=== PATIENT | male | born 1980 | race Caucasian/White ===

== ENCOUNTER → 2021-10-25 14:05 | Outpatient (RCR) | payer OTHER, SELFPAY ==
--- NOTE | 2020-04-18 18:56 | MHC.PT.EP ---
[facility] [place] Office [place] Office [place] Office [address] Emy Calderon [address] [phone] F: [phone] F: [phone] F: [phone] F: [phone] Physical Therapy Plan of Care Date of Evaluation: 04/18/20 Date of Surgery: Diagnosis: Cervical pain with evidence of disc disease. 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 Pt is deemed an appropriate candidate to receive skilled PT services to address his physical impairments to improve his functional ability. Frequency and Duration: The patient will be seen 2x/wk x 5 wks. Short Term Goals: In 3 weeks: abolish UE radicular Sx. In 1 week: initiate HEP with evidence of compliance. [place] Rug Setter Goals: In 5 weeks: I with HEP. In 5 weeks: Pt will report slightly disturbed sleep d/t cervical pain (initial: 2-3 hours disturbed per NDI). In 5 weeks: improve deep neck flexor endurance to > 30 seconds; initial 18 seconds. Treatment Plan: Modalities to reduce pain, spasms and effusion. Manual therapy to restore motion and function. Therapeutic exercise to improve strength and flexibility. Neuromuscular re-education for posture and balance. Therapeutic activities to return to functional activities of daily living. Please sign and return to therapist. Thank you for your referral.
--- NOTE | 2020-06-01 10:26 | MHC.PT.DC ---
[facility] [place] Office [place] Office [place] Office [address] Emy Calderon [address] [phone] F: [phone] F: [phone] F: [phone] F: [phone] Physical Therapy Discharge Report Diagnosis: Cervical pain with evidence of disc disease. Date of Surgery: Date of Evaluation: 04/18/20 Date of Discharge: Treatments to Date: 9 Cancellations to Date: 0 No Shows to Date: 0 Discharge Status: Achieved Goals Improved Function Discharge Summary: Artemio has been an ideal candidate for PT who has been an active participant in his therapy in and out of the clinic. He has met all of his therapeutic goals and is I with his home program. He has been pain free for > 3 weeks of his cervical and scapular regions though persists with some L index finer numbness. Pt is in agreement with DC at this time. Electronically signed by: bharti becker pt Please sign and return to therapist. Thank you for your referral.
== END | disposition home or self-care (01) ==
LOC: HO.PTCHIC 04-18 16:50
PROVIDERS: PCP Nurse Practitioner Family; Visit Provider Nurse Practitioner Family
DX: M50.90 Cervical disc disorder, unspecified, unspecified cervical region (principal)
CPT/HCPCS: 97014; 97110; 97140; 97161

== ENCOUNTER 2022-02-15 17:14 | Emergency (ER) | payer OTHER, SELFPAY ==
--- NOTE | ~2022-02-15 | XR_ITS ---
EXAMINATION: XR KNEE, LEFT CLINICAL INFORMATION: Closed injury COMPARISON: 12/23/2013 TECHNIQUE: Four views of the left knee. FINDINGS: Alignment across the knee is anatomic. Joint spaces are relatively well-maintained. Partially visualized intramedullary jaspreet in the tibia. Small to moderate joint effusion noted. XR/XR knee LT 3V IMPRESSION: Small to moderate joint effusion. No fracture identified.
[2022-02-15 19:41] VITALS: BP 130/69; PULSE 63; RESP 14; TEMP 36.6; O2SAT 97; BMI 24.1
--- NOTE | 2022-02-15 23:36 | ED_ITS ---
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 was walking and twisted his left knee since then increased swelling pain specially when ambulating patient had previous left tibia surgery in the past denies any significant pain in the knee before the incident Related Data Previous Rx's Medication Instructions Recorded tramadol 50 mg tablet 50 mg PO Q6H PRN pain #20 tabs 02/16/22 Allergies Allergy/AdvReac Type Severity Reaction Status Date / Time Sulfa (Sulfonamide Allergy Unknown rash Verified 12/15/19 00:00 Antibiotics) No Known Allergies Allergy Unverified 03/09/20 14:49 Review of Systems Review of Systems: Yes all other systems are reviewed and are negative [facility] Social History Social History Advance Directives: No Advance Directives Information Provided: No Physical Exam 2 Vital Signs: Vital Signs: Last Vital Signs Temp 98.5 F 02/15/22 23:39 Pulse 70 02/15/22 23:39 Resp 16 02/15/22 23:39 BP 119/73 02/15/22 23:39 Pulse Ox 98 02/15/22 23:39 O2 Del Method 02/15/22 23:39 BMI result Body Mass Index 24.1 Const: General: comfortable and no acute distress Extrem: Knee images: 1. Lateral joint line tenderness with effusion Susy sign positive , anterior drawer sign negative good range of knee movement++ ef fusion present MDM - Extremity Injury (Lower) MDM Narrative Medical decision making narrative: Patient x-rays showed small to moderate effusion no fracture discharge patient home possible patient has left knee left meniscal strain Discharge Plan Discharge Clinical Impression: Acute internal derangement of knee Patient Disposition: Home, Self-Care Instructions: Knee Sprain (ED), Meniscus Tear (ED) Additional Instructions: Rest to the left knee, wear the knee immobilizer use crutches for ambulation Ibuprofen for pain Follow-up with orthopedics for further evaluation and treatment Prescriptions: New tramadol 50 mg tablet 50 mg PO Q6H PRN (Reason: pain) Qty: 20 0RF Referrals: Mendel Hooker MD [Physician] - 2 weeks
[2022-02-15 23:39] VITALS: BP 119/73; PULSE 70; RESP 16; TEMP 36.9; O2SAT 98
--- NOTE | 2022-02-16 00:39 | PC.NURSE ---
L knee immobilizer applied. Pt verbalized an understanding for its proper uses and indications. Pt was also given crutches and was able to demonstrate a safe use of them. He verbalized an understanding of all DC orders and ambulated out of the ED on crutches independently and with steady gait.
== END 2022-02-16 00:38 | disposition home or self-care (01) ==
PROVIDERS: Emergency Provider Internal Medicine; PCP Nurse Practitioner Family
DX: M23.92 Unspecified internal derangement of left knee (principal); M25.462 Effusion, left knee; M25.562 Pain in left knee
CPT/HCPCS: 73562; 99283

== ENCOUNTER 2022-03-04 08:34 | Outpatient (REF) | payer OTHER, SELFPAY ==
--- NOTE | ~2022-03-04 | XR_ITS ---
EXAMINATION: XR KNEE AP STANDING XR KNEE LEFT CLINICAL INFORMATION: Knee pain. COMPARISON: 0 02/15 2022 TECHNIQUE: AP standing view both knees [place] view of left knee FINDINGS: AP standing view both knees: The tibiofemoral joint spaces are maintained at each knee. The visualized proximal segment of the left tibial nail is in stable position. No osteolysis around the visualized hardware. Incidentally noted are punctate metallic densities projecting over soft tissues of the lateral distal right thigh. [place] view of left knee: The patella is well-positioned within the trochlear groove. The patellofemoral joint space is normal. There are no findings of any significant degenerative or inflammatory arthropathy at the knee. XR/XR knee LT 1V IMPRESSION: * No specific cause of knee pain is identified. * There is no fracture or osteolysis around the visualized proximal segment of the left tibial intramedullary nail.
--- NOTE | ~2022-03-04 | XR_ITS ---
EXAMINATION: XR KNEE AP STANDING XR KNEE LEFT CLINICAL INFORMATION: Knee pain. COMPARISON: 0 02/15 2022 TECHNIQUE: AP standing view both knees [place] view of left knee FINDINGS: AP standing view both knees: The tibiofemoral joint spaces are maintained at each knee. The visualized proximal segment of the left tibial nail is in stable position. No osteolysis around the visualized hardware. Incidentally noted are punctate metallic densities projecting over soft tissues of the lateral distal right thigh. [place] view of left knee: The patella is well-positioned within the trochlear groove. The patellofemoral joint space is normal. There are no findings of any significant degenerative or inflammatory arthropathy at the knee. XR/XR knee standing BI IMPRESSION: * No specific cause of knee pain is identified. * There is no fracture or osteolysis around the visualized proximal segment of the left tibial intramedullary nail.
== END 2022-03-04 08:35 | disposition home or self-care (01) ==
LOC: HO.HOSX 08:34
PROVIDERS: Visit Provider Physician Assistant
DX: M25.562 Pain in left knee (principal); M25.561 Pain in right knee
CPT/HCPCS: 73560; 73565

== ENCOUNTER 2022-03-15 15:53 | Outpatient (REF) | payer OTHER, SELFPAY ==
--- NOTE | ~2022-03-15 | MR_ITS ---
EXAMINATION: MR KNEE WITHOUT CONTRAST, LEFT CLINICAL INFORMATION: Left knee pain. Internal derangement. COMPARISON: Left knee radiographs dated 03/04/2022. TECHNIQUE: MRI of the knee without contrast was performed using routine sequences on a high-field scanner. FINDINGS: MENISCI: Medial Meniscus: Intact. Lateral Meniscus: Possible minimal inner margin fraying of the meniscal body. LIGAMENTS: Cruciate: Complete tear through the proximal aspect of the anterior cruciate ligament. The distal ligament is diffusely thickened and irregular with anterior displacement of distal ligament fibers. Adjacent soft tissue edema. Intact posterior cruciate ligament. Collateral: Mild edema adjacent to the medial collateral ligament consistent with a grade 1 sprain. Intact fibular collateral ligament. EXTENSOR MECHANISM: Intact. ARTICULAR CARTILAGE/BONE: Patellofemoral Compartment: Patellar median ridge partial-thickness articular cartilage loss with underlying signal heterogeneity. Tiny marginal osteophytes. Medial Compartment: Minimally depressed impaction fracture of the posterior aspect of the medial tibial plateau with underlying marrow edema. Lateral Compartment: Minimally depressed impaction fractures at the sulcus terminalis and posterior lateral tibial plateau with underlying marrow edema. Partially visualized artifact within the proximal tibia consistent with prior surgery. No evidence of complication. JOINT FLUID AND BURSAE: Small joint effusion. Posterior fluid within the fascial planes consistent with leak or rupture. MR/MR knee LT wo con IMPRESSION: 1. Complete tear through the proximal aspect of the anterior cruciate ligament with adjacent edema and anterior displacement of the distal ligament fibers. 2. Minimally depressed impaction fractures at the sulcus terminalis as well as at the medial and lateral posterior tibial plateau. Small joint effusion. 3. Grade 1 sprain of the medial collateral ligament. 4. Possible minimal inner margin fraying of the lateral meniscal body.
--- NOTE | ~2022-03-15 | XR_ITS ---
EXAMINATION: X-RAY ORBITS CLINICAL INFORMATION: Screening for MRI. COMPARISON: No similar priors. TECHNIQUE: 3 views. XR/XR pre mri screening FINDINGS/IMPRESSION: No unexpected radiopaque foreign bodies.
== END 2022-03-15 15:54 | disposition home or self-care (01) ==
LOC: HO.MRI 15:53
PROVIDERS: Visit Provider Physician Assistant
DX: M23.92 Unspecified internal derangement of left knee (principal)
CPT/HCPCS: 73721

== ENCOUNTER → 2022-03-22 13:08 | Outpatient (REF) | payer OTHER, SELFPAY ==
--- NOTE | 2022-03-22 13:11 | HM_ITS ---
Conclusion: 1. Patient was monitored for total period of 3 days 2. Baseline was normal sinus rhythm with average heart of 62 beats per minute 3. Frequent sinus bradycardia noted with heart rate below 60 beats per minute noted 50% of the time 4. Seven pauses greater than 2.5 seconds noted with longest pause of 2.75 seconds at 01:27 5. Rare ectopy noted 6. No patient reported events MTDD
--- NOTE | 2022-03-22 13:16 | CA_ITS ---
Transthoracic Echocardiogram Patient (Last, First, Middle): Artemio Mir E Gender: Male Date of : 1980 Age: 41 Procedure Date: 03/22/2022 Procedure Type: Transthoracic Echocardiogram Location: OP Height: 182.88 cm Weight: 79.38 kg BSA: 2.01 m2 Heart Rate: bpm BP: 120 / 72 mmHg Circuit Walker: TO Referring MD: Adalberto Dunn [facility] Symptoms: R07.9 - Chest pain, unspecified Study Quality: Fair Conclusions: - Normal left ventricular size, thickness, systolic function, and wall motion. The visually estimated ejection fraction is between 55-60%. Diastolic function is normal for age. - There is normal right ventricular systolic function. RV appears borderline enlarged. Findings Left Ventricle Normal left ventricular size, thickness, systolic function, and wall motion. The visually estimated ejection fraction is between 55-60%. Diastolic function is normal for age. Right Ventricle There is normal right ventricular systolic function. RV appears borderline enlarged. Atria Both atria are normal in size. Aortic Valve Normal aortic valve structure and function. There is no aortic valve stenosis. There is no aortic valve regurgitation. Mitral Valve Normal mitral valve structure and function. There is no mitral valve regurgitation. There is no mitral valve stenosis. Pulmonic Valve Normal pulmonic valve structure and function. There is trace pulmonic valve regurgitation. Tricuspid Valve Normal tricuspid valve structure and function. There is no tricuspid valve regurgitation. Normal right atrial pressure. There is no evidence of pulmonary hypertension. Great Vessels All visible segments of the aorta are normal in size. The visualized portions of the pulmonary artery and branches are normal. Venous The inferior vena cava is normal in size and collapses greater than 50% with inspiration. Pericardium/Pleural There is no evidence of pericardial effusion. Prior Study Comparison No prior study available for comparison. Measurements 2D Linear Measurements IVSd: 1.01 0.6-0.9/0.6-1.0 cm LVIDd: 4.97 3.9-5.3/4.2-5.9 cm LVIDd Index: 2.47 2.4-3.2/2.2-3.1 cm/m2 LVIDs: 2.98 2.0-3.6 cm LVPWd: 1.02 0.7-1.1 cm LA Diam: 3.60 2.7-3.8/3.0-4.0 cm LAIDs Index: 1.79 1.5-2.3 cm/m2 LV Mass: 229.05 67-162/88-224 g LV Mass Index: 113.95 43-95/49-115 g/m2 LVOT Diam: 2.20 3.0+(-)1.3 cm 2D Systolic Function EF 4C: 65.50 >55% EF 2C: 57.10 >55% EF BiP: 61.30 >55% Mitral Valve MV Pk E: 0.84 MV PK A: 0.33 MV Decel Time: 204.00 E/A: 2.60 E'Lateral: 15.80 E'Medial: 9.57 E/E' Med: 8.70 E/E' Lat: 5.30 PHT: 60.00 MVA PHT: 3.67 Decel [place]: 4.10 Aortic Valve AoV Pk Darryl: 1.54 AoV Mn Darryl: 1.12 AoV VTI: 0.36 AoV Pk Grad: 9.00 Aov Mn Grad: 5.00 MICHAEL Cont.VTI: 2.88 LVOT LVOT Pk Darryl: 1.20 LVOT Mn Darryl: 0.75 LVOT VTI: 0.27 LVOT Pk Grad: 6.00 LVOT Mn Grad: 3.00 LVOT Diam: 2.20 LVOT Area: 3.80 Diastolic Function MV Pk E: 0.84 MV Pk A: 0.33 E/A: 2.60 E'Medial: 9.57 E/E' Med: 8.70 E' Laterial: 15.80 E/E' Lat: 5.30 Right Ventricle TAPSE (mm): 23.40 TVS' Darryl: 11.30 Tricuspid Valve TR Pk Darryl: 2.63 TR Pk Grad: 28.00 RA Press: 3.00 RVSP: 31.00 Great Vessels Aorta Sinus of Valsalva: 3.18 2.0-3.5 cm Ao Asc: 2.80 2.1-3.4 cm Updated in Other Vendor System with Status of Final Nickolas Tellez MD electronically signed on 03/22/2022 7:56:23 PM with status of Final
== END ==
LOC: HO.CARD 13:08
PROVIDERS: PCP Nurse Practitioner Family; Visit Provider Nurse Practitioner Family
DX: R07.9 Chest pain, unspecified (principal)
CPT/HCPCS: 93242; 93306

== ENCOUNTER → 2022-06-11 10:26 | Outpatient (BNVA) | payer OTHER, SELFPAY | PROVIDERS: PCP Nurse Practitioner Family; Visit Provider Physician Assistant | DX: S83.519A Sprain of anterior cruciate ligament of unspecified knee, initial encounter (principal) ==

== ENCOUNTER 2022-06-12 09:56 | Day surgery (SDC) | payer OTHER, SELFPAY ==
[2022-06-07 09:27] VITALS: BMI 24.8
--- NOTE | 2022-06-11 09:09 | HO.ANESPROP2 ---
Documented by User: Nereida Camarillo NP 06/11/22 09:14 HPI - Anesthesia Eval Consult details Narrative: 41yo M for Left ACL Reconstruction with Allograft Cardiac cleared PMF Active Problems Active Problems: All Active Problems (Updated 05/02/22 @ 15:50 by Nickolas Tellez MD) Chest pain (Acute) Nail discoloration (Acute) Internal derangement of left knee (Acute) ACL (anterior cruciate ligament) rupture (Acute) Preop cardiovascular exam (Acute) Past Medical History Medical History Celiac disease GERD (gastroesophageal reflux disease) Family History Family History Father Stroke Mother H/O heart artery stent Surgical History Surgical History History of back surgery History of esophagogastroduodenoscopy (EGD) History of surgery on lower extremity Social History Social History Alcohol intake: current Alcohol intake frequency: former alcohol drinker Patient Tobacco Use Status: Current everyday Tobacco user Tobacco use type: Cigarette and Smokeless Tobacco Cigarettes Per Day: 6 Years Smoked: 8 +/- e-Cigarette/Vaping Use: Currently Using Substance Use Type: Marijuana Current occupational status: employed Current occupation: [employer], [employer] Allergies Allergy/AdvReac Type Severity Reaction Status Date / Time No Known Allergies Allergy Verified 06/11/22 10:30 Home Medications Medication Instructions Recorded Confirmed Last Taken Type fluoxetine 20 mg capsule 20 mg PO DAILY 02/19/22 06/07/22 Unknown History lamotrigine 200 mg tablet 200 mg PO BID 02/19/22 06/07/22 Unknown History trazodone 50 mg tablet 50 mg PO BEDTIME 02/21/22 06/07/22 Unknown History Exam Exam Date and Time: June 11, 2022 0909 Height,Weight and Vital Signs: Height 6 ft Weight 83.007 kg Narrative Narrative: ECHO 02/2022 Conclusions: - Normal left ventricular size, thickness, systolic function, and wall motion. The visually estimated ejection fraction is between 55-60%.? Diastolic function is normal for age. ? - There is normal right ventricular systolic function.? RV ? ? ? appears borderline enlarged. ? Holter 02/2022 Conclusion: 1. Patient was monitored for total period of 3 days 2. Baseline was normal sinus rhythm with average heart of 62 beats per minute 3. Frequent sinus bradycardia noted with heart rate below 60 beats per minute noted 50% of the time 4. Seven pauses greater than 2.5 seconds noted with longest pause of 2.75 seconds at 01:27 5. Rare ectopy noted 6. No patient reported events Assessment and Plan Assessment Anesthesia Assessment: Chart Reviewed Documented by User: Jefry Weeks MD 06/12/22 17:34 [facility] Past Medical History Medical History Celiac disease GERD (gastroesophageal reflux disease) Functional capacity: independent ambulation Family History Family History Father Stroke Mother H/O heart artery stent Family history of problems with anesthesia: No Surgical History Surgical History History of back surgery History of esophagogastroduodenoscopy (EGD) History of surgery on lower extremity History of Problems with Anesthesia: No Social History Social History Alcohol intake: current Alcohol intake frequency: former alcohol drinker Patient Tobacco Use Status: Current everyday Tobacco user Tobacco use type: Cigarette and Smokeless Tobacco Cigarettes Per Day: 6 Years Smoked: 8 +/- e-Cigarette/Vaping Use: Currently Using Substance Use Type: Marijuana Current occupational status: employed Current occupation: [employer], [employer] Allergies Allergy/AdvReac Type Severity Reaction Status Date / Time No Known Allergies Allergy Verified 06/11/22 10:30 Home Medications Medication Instructions Recorded Confirmed Last Taken Type fluoxetine 20 mg capsule 20 mg PO DAILY 02/19/22 06/07/22 Unknown History lamotrigine 200 mg tablet 200 mg PO BID 02/19/22 06/07/22 Unknown History trazodone 50 mg tablet 50 mg PO BEDTIME 02/21/22 06/07/22 Unknown History Exam Airway Mallampati Class: IV TM Dist: >3cm Neck ROM: Full Loose/Missing/Broken Teeth: Yes (multiple chipped teeth ) Heart: S1,S2 Lungs: b/l breath sounds Assessment and Plan Assessment Anesthesia Assessment: Anesthesia Plan Discussed Final Anesthetic Review Family History of Problems with Anesthesia: No History of Problems with Anesthesia: No NPO: Yes ASA Class: II Final Preanesthetic Review: Meds/Allgs Chart Reviewed, Consent Obtained/Reviewed and Anes Risks/Benef Reviewed Patient Risk: Intermediate Procedure Risk: Intermediate Anesthetic Plan Anesthetic Plan: GA and Regional Block Disposition: Standard PACU
[2022-06-12] VITALS (9 sets, daily range): BP systolic 102–143; BP diastolic 49–91; PULSE 55–84; RESP 10–18; TEMP 36.7; O2SAT 95–100; BMI 23.0
[2022-06-12] MEDS: Lactated Ringers 1,000 ML 100 ML IVCONT (10:48)
--- NOTE | 2022-06-12 11:27 | MHC.SHP ---
Pre-Procedural Eval Section A Date of Service: 06/12/22 The patient is an INPATIENT: No Changes since office visit: No Cold of Flu in the past 2 weeks, No New Medical Problems, No Changes in Medication and No Patient answered all questions The History & Physical has been completed within 30 days and I have reviewed it.: Yes Section B Chief Complaint: Sprain of anterior cruciate ligament of unspecifie Allergies: Allergies Allergy/AdvReac Type Severity Reaction Status Date / Time No Known Allergies Allergy Verified 06/11/22 10:30 Plan I have reviewed the history and physical and performed a pertinent physical examination on my patient. No changes have occurred unless specified. Time Spent With Patient Time: Total time managing care of this patient today ____ minutes.
--- NOTE | 2022-06-12 13:17 | PM.OP ---
Brief Operative Note Date of Service: 06/12/22 Pre-op diagnosis: Left ACL tear Post-op diagnosis: same Procedure: Left ACL reconstruction with allograft Implants: Alves and Nephew ACL endobutton with Anterior Tibiaslis allograft and 11x25 mm Alves and Nephew interference screw Surgeon: Mendel Hooker MD Anesthesia: GETA Was an Catalyst Operator Chief used for this Procedure?: Yes Catalyst Operator Chief: Sarika Patiño Estimated blood loss (mL): 20 Tourniquet time (min): 55 IV fluids (mL): 1,000 Pathology: none sent Condition: stable Disposition: PACU
[2022-06-12] MEDS: Acetaminophen 325 MG TABLET 650 MG PO (13:56)
[2022-06-12] MEDS: oxyCODONE HCl Immed Release 5 MG TABLET PO (13:56)
[2022-06-12] MEDS: fentaNYL citrate/PF 100 MCG/2 ML VIAL 25 MCG IVPUSH ×2 (13:57→14:04)
--- NOTE | 2022-06-12 15:10 | W.PM.OPN ---
Operative Note Operative Note Date of Service: 06/12/22 Narrative: Date of Service: 06/12/22 Pre-op diagnosis: Left ACL tear Post-op diagnosis: same Procedure: Left ACL reconstruction with allograft Implants: Alves and Nephew ACL endobutton with Anterior Tibiaslis allograft and 11x25 mm Alves and Nephew interference screw Surgeon: Mendel Hooker MD Anesthesia: GETA Was an Recreation Leader used for this Procedure?: Yes Recreation Leader: Sarika Patiño Estimated blood loss (mL): 20 Tourniquet time (min): 55 IV fluids (mL): 1,000 Pathology: none sent Condition: stable Disposition: PACU Procedure in detail: Patient was brought to the operating room placed supine on the arthroscopic table and prepped and draped in standard sterile fashion. A time-out was called to identify proper site proper procedure proper surgeon and IV antibiotics per weight were administered. Under anesthesia she had a + pivot shift. I began by exsanguinating the limb and insufflating tourniquet to 300 mm Hg. Then made a standard anterolateral stab incision. The knee was insufflated with water and 30 degree arthroscope was placed. There was grade 0 fibrillations of the patella but overall suprapatellar pouch and the gutters were clean. I descended into the medial compartment where I made my far medial portal under direct visualization. There were no menical changes and G1 fibrillations over hte lateral spect of the MFC. I then examined the notch where there was a + empty wall sign and an intact PCL. I debrided the stump and acl footprint and performed a limited notchplasty. I then, through a far AM portal and a 7mm behind the back guide, drilled a k-wire through the LFC with the knee in hyper-flexion. I measured the tunnel as a 33 and then after sizing the allograft on the back table drilled a 25 mm tunnel with an 11 mm reamer. The final 8 mm was drilled with a 4.5 reamer. I then pulled a suture through the femoral tunnel and turned my attention to the tibia. I did examine the femoral tunnel and was satisfied with the posterior wall and its location low and medial at the anatomic footprint. I placed my tibial drill guide in 55 deg and, through a anteromedial inc just lateral to the tibial tubercle placed a k-wire into the notch exiting just medial to the anterior horn insertion of the lateral meniscus. I then over-reamed with an 11 reamer. I cleaned the tunnels up with a shaver. On the back table I whip-stitched the allograft to fit through an 11 aperture and attached the femoral button to the looped end. I placed the graft on 15lbs of tension for 10 minutes. I then passed the allograft through the tibial tunnel and femoral tunnel and flipped the button. I cycled the knee about 10-15 cycles and then placed a tibial interference screw with the knee in hyper-extension while holding the graft taught. Once I was satisfied that the interference screw was buried I examined the ACL. The repair was stable and the ACL was not impinging and there was a negative pivot shift. I then removed all instrumentation and closed the incisions with nylon. Patient was then placed in sterile dressings and a hinged knee brace. She was then extubated brought recovery room stable condition. There were no known complications.
== END 2022-06-12 15:25 | disposition home or self-care (01) ==
LOC: HO.SSS 09:57
PROVIDERS: PCP Nurse Practitioner Family; Visit Provider Orthopaedic Surgery
PROC: (CPT 27428; principal; 2022-06-12 11:50)
DX: S83.512A Sprain of anterior cruciate ligament of left knee, initial encounter (principal); X58.XXXA Exposure to other specified factors, initial encounter; Y93.61 Activity, american tackle football; Y92.9 Unspecified place or not applicable; Y99.8 Other external cause status; R07.9 Chest pain, unspecified; K90.0 Celiac disease; K21.9 Gastro-esophageal reflux disease without esophagitis; Z79.899 Other long term (current) drug therapy; Z98.890 Other specified postprocedural states; F17.210 Nicotine dependence, cigarettes, uncomplicated
CPT/HCPCS: 29888; A4649; C1713; C1769; J0690; J1170; J2250; J2405; J3010

== ENCOUNTER 2022-06-21 07:57 | Outpatient (REF) | payer OTHER, SELFPAY ==
--- NOTE | ~2022-06-21 | XR_ITS ---
EXAMINATION: XR KNEE, LEFT CLINICAL INFORMATION: Pain. COMPARISON: Radiographs dated 03/05/2022 and 02/15/2022. TECHNIQUE: AP and lateral views of the left knee. FINDINGS: Bony alignment and mineralization are normal. The lateral, medial and patellofemoral joint space compartments are well-maintained. There is a mild patella ti configuration. An intramedullary jaspreet is redemonstrated within the proximal left femur, partially included in the [id number]. There is stable very mild osteolysis adjacent to the proximal portion of this intramedullary jaspreet, unchanged from 02/15/2022. There appears to have been a prior ACL repair. No fracture or dislocation is seen. There is a small left knee joint effusion. No foreign body is noted. XR/XR knee LT 2V IMPRESSION: 1. No fracture or dislocation is seen. 2. There is a small left knee joint effusion. 3. There are postoperative changes, as detailed.
== END 2022-06-21 07:58 | disposition home or self-care (01) ==
LOC: HO.HOSX 07:57
PROVIDERS: Visit Provider Physician Assistant
DX: S83.512D Sprain of anterior cruciate ligament of left knee, subsequent encounter (principal)
CPT/HCPCS: 73560

== ENCOUNTER → 2022-07-19 11:30 | Outpatient (BNVA) | payer OTHER, SELFPAY | PROVIDERS: PCP Nurse Practitioner Family; Visit Provider Physician Assistant | DX: S83.512A Sprain of anterior cruciate ligament of left knee, initial encounter (principal) ==

== ENCOUNTER 2022-08-23 09:00 | Outpatient (RCR) | payer OTHER, SELFPAY ==
--- NOTE | 2022-06-14 10:11 | MHC.PT.EP ---
[facility] [place] Office [place] Office [place] Office [address] Emy Calderon [address] [phone] F: [phone] F: [phone] F: [phone] F: [phone] Physical Therapy Plan of Care Date of Evaluation: Date of Surgery: 06/12/22 Diagnosis: L ACL allograft Assessment: 41 y/o male s/p L ACL reconstruction with allograft 06/12/22. Of note, he has a L tibial ORIF and L5-S1 fusion. He is currently ambulating with B axillary crutches wearing brace locked in extension. He has poor quad strength with asymmetrical and weak firing of quad, swelling, L knee ROM 0-8-90, and significant lag with SLR (therapist assisted). 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 He will benefit from PT 2x/week for 16 weeks to address impairments, implement HEP, and optimize functional moblity. Frequency and Duration: The patient will be seen 2x/week for 16 weeks Short Term Goals: Pt will demonstrate good VMO recruitment without extension lag in 4 weeks. Pt will demonstrate knee flexion AROM to 105 deg in 4 weeks. Pt will demonstrate L knee extension AROM to 0 deg for symmetry with R knee in 4 weeks. Pt will demonstrate increased L patella mobility to 3/6 in 4 weeks. Pt will demonstrate ability to ambulate with normal gait mechanics without brace in 8 weeks. Edge Inker Goals: Pt will demonstrate full knee AROM Pt will demonstrate L SLS EO x 15 sec and L SLS EO on foam x 15 sec for improved knee proprioception in 8-10 weeks. Pt will demonstrate L hip and knee strength at least 4/5 in 8-10 weeks. Pt will demonstrate L SL squat within 4 cm of R LE for decreased risk of reinjury in 12 weeks. Pt will be able to initiate specific selected sport drills Treatment Plan: Modalities to reduce pain, spasms and effusion. Manual therapy to restore motion and function. Therapeutic exercise to improve strength and flexibility. Neuromuscular re-education for posture and balance. Therapeutic activities to return to functional activities of daily living. Electronically signed by: Zoraida Lindsay PT Please sign and return to therapist. Thank you for your referral.
--- NOTE | 2022-09-30 14:41 | MHC.PT.DC ---
[facility] [place] Office [place] Office [place] Office [address] Emy Calderon 140 [facility] [phone] F: [phone] F: [phone] F: [phone] F: [phone] Physical Therapy Discharge Report Diagnosis: L ACL allograft Date of Surgery: 06/12/22 Date of Evaluation: 06/14/22 Date of Discharge: 09/30/22 Treatments to Date: 9 Cancellations to Date: 0 No Shows to Date: 1 Discharge Status: Improved Function Independent with HEP Discharge Summary: He was making good progress with strength and functional mobility but did not f/u with further appointments. D/c chart at this time Electronically signed by: Zoraida Lindsay PT Please sign and return to therapist. Thank you for your referral.
== END 2022-09-30 14:42 | disposition home or self-care (01) ==
LOC: HO.PTCHIC 09:00
PROVIDERS: PCP Nurse Practitioner Family; Visit Provider Physician Assistant
DX: S83.512A Sprain of anterior cruciate ligament of left knee, initial encounter (principal); Z98.890 Other specified postprocedural states
CPT/HCPCS: 97110; 97112; 97140; 97161; 97530

== ENCOUNTER → 2022-08-30 13:40 | Outpatient (BNVA) | payer OTHER, SELFPAY | PROVIDERS: PCP Nurse Practitioner Family; Visit Provider Physician Assistant | DX: Z13.89 Encounter for screening for other disorder (principal) ==

== ENCOUNTER 2022-09-23 02:04 | Emergency (ER) | payer OTHER, SELFPAY ==
--- NOTE | 2022-09-23 02:05 | ECG_ITS ---
Test Reason : CHEST PAIN Blood Pressure : / mmHG Vent. Rate : 071 BPM Atrial Rate : 071 BPM P-R Int : 162 ms QRS Dur : 108 ms QT Int : 394 ms P-R-T Axes : 081 083 069 degrees QTc Int : 428 ms Normal sinus rhythm Normal ECG No previous ECGs available Referred By: Generic ED Physician Electronically Signed By:Nickolas Tellez
[2022-09-23 02:20] VITALS: BP 177/93; PULSE 80; RESP 18; TEMP 37; O2SAT 100; BMI 23.0
[2022-09-23 02:37] LABS: MANUAL DIFF FLAG NO
[2022-09-23 02:38] LABS: Basophils Absolute Auto 0.1 X10*3/uL (0.0-0.2); Basophils Percent Auto 0.9 % (0-2); Eosinophils Percent Auto 0.5 % (0-4); Hematocrit 40.9 % (42.0-52.0); Hemoglobin 14.3 g/dl (14.0-18.0); Imm Gran Abs Auto 0.01 X10*3/uL (0.00-0.03); Imm Gran Pct Auto 0.1 % (0.0-0.4); Lymphocytes Absolute Auto 1.7 X10*3/uL (1.2-4.9); Lymphocytes Percent Auto 19.6 % (20-40); Mean Corpuscular Hemoglobin 31.4 pg (27.0-33.0); Mean Corpuscular Volume 89.9 fL (80.0-98.0); Mean Platelet Volume 9.1 fL (9.4-12.4); Monocytes Absolute Auto 0.8 X10*3/uL (0.1-1.2); Monocytes Percent Auto 8.5 % (2-11); Neutrophils Absolute Auto 6.2 x10*3/uL (2.0-8.3); Neutrophils Percent Auto 70.4 % (45-73); Platelet Count 274 X10*3/uL (160-400); Red Blood Count 4.55 X10*6/uL (4.60-5.80); Red Cell Distribution Width 11.9 % (11.0-16.0); White Blood Count 8.9 X10*3/uL (4.8-10.8)
[2022-09-23 03:04] LABS: Anion Gap 17 (12-20); Blood Urea Nitrogen 13 mg/dL (9-16); Calcium 9.4 mg/dL (8.4-10.2); Carbon Dioxide 25 mmol/L (22-29); Chloride 98 mmol/L (96-108); Estimated Glomerular Filt Rate > 60; Glucose Random 134 mg/dL (60-115); Potassium 3.7 mmol/L (3.3-5.1); Sodium 136 mmol/L (135-145)
[2022-09-23 03:09] LABS: Troponin-I High Sensitivity < 3.5 ng/L (<3.5-35.0)
[2022-09-23] MEDS: diphenhydrAMINE HCL 25 MG CAPSULE 50 MG PO (04:11)
[2022-09-23 04:15] VITALS: BP 128/71; PULSE 67; RESP 16; TEMP 36.7; O2SAT 97
--- NOTE | 2022-09-23 04:21 | ED.GENADULT ---
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 felt having an allergic reaction also has used cocaine earlier at this time on arrival patient was feeling very anxious was complaining of palpitation but cardiac monitoring was normal sinus rhythm no significant rash seen no tongue or lip swelling seen Related Data Home Medications Medication Instructions Recorded Confirmed fluoxetine 20 mg capsule 20 mg PO DAILY 02/19/22 06/07/22 lamotrigine 200 mg tablet 200 mg PO BID 02/19/22 06/07/22 trazodone 50 mg tablet 50 mg PO BEDTIME 02/21/22 06/07/22 Previous Rx's Medication Instructions Recorded pantoprazole 40 mg tablet,delayed 40 mg PO DAILY #90 tabs 02/19/22 release diphenhydramine HCl 25 mg capsule 50 mg PO TID PRN allergy symptoms 09/23/22 (Benadryl) #20 caps Allergies Allergy/AdvReac Type Severity Reaction Status Date / Time No Known Allergies Allergy Verified 08/30/22 13:47 Review of Systems Review of Systems: Yes all other systems are reviewed and are negative PMFSH Past Medical History Medical History Celiac disease GERD (gastroesophageal reflux disease) Surgical History History of back surgery History of esophagogastroduodenoscopy (EGD) History of surgery on lower extremity Family History Family History Father Stroke Mother H/O heart artery stent Social History Social History Alcohol intake: unknown Patient Tobacco Use Status: Current everyday Tobacco user Tobacco use type: Cigarette and Smokeless Tobacco Cigarettes Per Day: 6 Years Smoked: 8 +/- Smoked in Last 30 Days: No e-Cigarette/Vaping Use: Currently Using Use of substances other than those prescribed or required for medical reasons: Yes Substance Use Type: Crack/Cocaine Advance Directives: No Current occupational status: employed 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 Oriented X3. No acute distress. Very anxious Eyes: PERRLA, No Nystagmus ENT: Pharynx normal. Oral Mucosa moist Neck: Normal inspection. Neck supple. CVS: Normal heart rate and rhythm. Pulses normal. Respiratory: No respiratory distress. Equal air entry bilateral, no wheezing/rales/rhonchi Abdomen: Soft and nontender. Bowel sounds are present, no mass palpable, no CVA tenderness Skin: Skin warm and dry. Normal skin color. Normal skin turgor. Extremities: No lower extremity edema. No calf tenderness Neuro: Oriented X 3. No motor deficit. No sensory deficit.No cerebellar signs , cranial nerves II-XII intact Medications Administered Discontinued Medications Generic Name Dose Route Start Last Admin Trade Name Freq PRN Reason Stop Dose Admin Acetaminophen 650 mg 09/23/22 04:20 09/23/22 04:34 Acetaminophen 325 Mg Tablet PO 09/23/22 04:21 650 mg ONCE ONE Administration Diphenhydramine HCl 50 mg 09/23/22 04:07 09/23/22 04:11 Diphenhydramine Hcl 25 Mg Capsule PO 09/23/22 04:08 50 mg ONCE ONE Administration Medical Decision Making Medical Decision Making [facility] Narrative: Patient with nonspecific complaints likely from substance abuse and anxiety will discharge patient home on Benadryl advised to stop using cocaine Lab Data [facility] Lab Attestation statement: I reviewed the patient's lab results. 09/23/22 02:32 09/23/22 02:32 Labs: Lab Results 09/23/22 09/23/22 09/23/22 Range/Units 02:32 02:32 02:32 WBC 8.9 (4.8-10.8) X10*3/uL RBC 4.55 L (4.60-5.80) X10*6/uL Hgb 14.3 (14.0-18.0) g/dl Hct 40.9 L (42.0-52.0) % MCV 89.9 (80.0-98.0) fL MCH 31.4 (27.0-33.0) pg MCHC 35.0 (31.0-36.0) g/dl RDW 11.9 (11.0-16.0) % Plt Count 274 (160-400) X10*3/uL MPV 9.1 L (9.4-12.4) fL Immature Gran % (Auto) 0.1 (0.0-0.4) % Neut % (Auto) 70.4 (45-73) % Lymph % (Auto) 19.6 L (20-40) % Irion % (Auto) 8.5 (2-11) % Eos % (Auto) 0.5 (0-4) % Baso % (Auto) 0.9 (0-2) % Lymph # (Auto) 1.7 (1.2-4.9) X10*3/uL Irion # (Auto) 0.8 (0.1-1.2) X10*3/uL Eos # (Auto) 0.0 (0.0-0.4) X10*3/uL Baso # (Auto) 0.1 (0.0-0.2) X10*3/uL Abs Immat Gran (auto) 0.01 (0.00-0.03) X10*3/uL Absolute Neuts (auto) 6.2 (2.0-8.3) x10*3/uL Absolute Nucleated RBC 0.000 (0.0-0.012) X10*3/uL Nucleated RBC % (auto) 0.0 (0.0-0.2) /100WBC Sodium 136 (135-145) mmol/L Potassium 3.7 (3.3-5.1) mmol/L Chloride 98 (96-108) mmol/L Carbon Dioxide 25 (22-29) mmol/L Anion Gap 17 (12-20) BUN 13 (9-16) mg/dL Creatinine 1.07 (0.5-1.4) mg/dL Estim Creat Clear Calc 97.0 Estimated GFR > 60 Random Glucose 134 H (60-115) mg/dL Calcium 9.4 (8.4-10.2) mg/dL Troponin I High Sens < 3.5 (<3.5-35.0) ng/L Discharge Plan Discharge Clinical Impression: Allergic reaction, Cocaine abuse Patient Disposition: Home, Self-Care Instructions: Cocaine Abuse (ED), General Allergic Reaction (ED) Additional Instructions: Continue medications Benadryl 1 tablet every 6 hours as needed for allergic reaction Follow with PCP Stop using cocaine Prescriptions: New diphenhydramine HCl [Benadryl] 25 mg capsule 50 mg PO TID PRN (Reason: allergy symptoms) Qty: 20 0RF No Action trazodone 50 mg tablet 50 mg PO BEDTIME fluoxetine 20 mg capsule 20 mg PO DAILY lamotrigine 200 mg tablet 200 mg PO BID pantoprazole 40 mg tablet,delayed release (DR/EC) 40 mg PO DAILY Qty: 90 1RF Interventions: ED Discharge Assessment Last Done: 09/23/22 06:04 Discharge Date/Time: 09/23/22 06:04
[2022-09-23] MEDS: Acetaminophen 325 MG TABLET 650 MG PO (04:34)
--- NOTE | 2022-09-23 05:43 | PC.NURSE ---
pt c/o of headache provider aware med to follow
--- NOTE | 2022-09-23 05:43 | PC.NURSE ---
pt states decrease in headache
--- NOTE | 2022-09-23 06:05 | PC.NURSE ---
Discharge instructions given and explained to patient No apparent distress Patient ambulates safely and independently All of patient's questions answered
== END 2022-09-23 06:04 | disposition home or self-care (01) ==
PROVIDERS: Emergency Provider Internal Medicine; PCP Nurse Practitioner Family
DX: R07.89 Other chest pain (principal); L50.0 Allergic urticaria; F41.1 Generalized anxiety disorder; F43.0 Acute stress reaction; F14.10 Cocaine abuse, uncomplicated; F17.210 Nicotine dependence, cigarettes, uncomplicated; Z71.6 Tobacco abuse counseling; Z79.899 Other long term (current) drug therapy
CPT/HCPCS: 36415; 80048; 84484; 85025; 93005; 99283; 99285

== ENCOUNTER → 2022-10-31 13:35 | Outpatient (BNVA) | payer OTHER, SELFPAY | PROVIDERS: PCP Nurse Practitioner Family; Visit Provider Physician Assistant ==

== ENCOUNTER 2023-03-29 17:12 | Emergency (ER) | payer OTHER, SELFPAY ==
[2023-03-29 17:14] VITALS: BP 157/63; PULSE 82; RESP 16; TEMP 36.8; O2SAT 94; BMI 23.5
--- NOTE | 2023-03-29 17:15 | ED_ITS ---
HPI - General Adult General Chief complaint: Head Injury Stated complaint: Injury @ work 2 weeks ago, neck & head pain Time Seen by Provider: 03/29/23 18:41 Source: patient Mode of arrival: ambulatory Limitations: no limitations History of Present Illness HPI narrative: This is a [id number]-male presenting to the emergency department with a complaint of head and neck pain s/p work related injury which occurred on 03/14/2023. Pt states that he was walking up a 20 ft ladder and did not see a metal pole and struck the top of his head onto the steel pole. He heard a crunch in his neck and head, felt dizzy. Did not fall. He has had intermittent headaches since. He also admits to having right eye blurred vision for approximately 24 hours after the incident, denies any recent blurred vision. Patient is neurologically intact. C-spine is nontender however given circumstances will obtain CT Related Data Home Medications Medication Instructions Recorded Confirmed fluoxetine 20 mg capsule 20 mg PO DAILY 02/19/22 06/07/22 lamotrigine 200 mg tablet 200 mg PO BID 02/19/22 06/07/22 trazodone 50 mg tablet 50 mg PO BEDTIME 02/21/22 06/07/22 Previous Rx's Medication Instructions Recorded pantoprazole 40 mg tablet,delayed 40 mg PO DAILY #90 tabs 02/19/22 release diphenhydramine HCl 25 mg capsule 50 mg (2 x 25 mg) PO TID PRN 09/23/22 (Benadryl) allergy symptoms #20 caps cyclobenzaprine 10 mg tablet 10 mg PO BEDTIME PRN muscle spasm 03/29/23 #10 tabs ibuprofen 600 mg tablet 600 mg PO TID PRN pain #20 tabs 03/29/23 Allergies Allergy/AdvReac Type Severity Reaction Status Date / Time No Known Allergies Allergy Verified 10/31/22 13:40 Review of Systems Review of Systems: all other systems are reviewed and are negative Constitutional: Reports as per HPI and Reports no additional constitutional complaints Eyes: Reports as per HPI and Reports no additional eye complaints Reports system reviewed and no additional complaints, except as documented Cardiovascular: Reports as per HPI and Reports no additional cardiovascular complaints Respiratory: Reports as per HPI and Reports no additional respiratory complaints Gastrointestinal: Reports as per HPI and Reports no additional gastrointestinal complaints Genitourinary: Reports no additional female genitourinary complaints Musculoskeletal: Reports no additional musculoskeletal complaints Skin/Breast: Reports system reviewed and no additional complaints, except as docu Psychiatric: Reports no additional psychiatric complaints Endocrine: Reports no additional endocrine complaints Hematologic/Lymphatic: Reports no additional hematologic/lymphatic complaints Allergic/Immunologic: Reports no additional allergic/immunologic complaints Reports system reviewed and no additional complaints, except as documented and Reports Abnormal speech present [facility] Past Medical History Medical History Celiac disease GERD (gastroesophageal reflux disease) Surgical History History of esophagogastroduodenoscopy (EGD) History of back surgery History of surgery on lower extremity Family History Family History Father Stroke Mother H/O heart artery stent Social History Social History Alcohol intake: unknown Patient Tobacco Use Status: Current everyday Tobacco user Tobacco use type: Cigarette and Smokeless Tobacco Cigarettes Per Day: 6 Years Smoked: 8 +/- e-Cigarette/Vaping Use: Currently Using Substance Use Type: Crack/Cocaine Advance Directives: No Advance Directives Information Provided: No Current occupational status: employed Current occupation: [employer], [employer] Physical Exam ED Vital Signs: Vital Signs - 24 hr 03/29/23 17:14 Temperature 98.2 F Pulse Rate 82 Respiratory Rate 16 Blood Pressure 157/63 H Pulse Oximetry 94 Oxygen Delivery Method Room Air BMI result Body Mass Index 23.5 Vital signs have been reviewed and appear to be correct. Blood pressure elevated. Heart rate normal. Respiratory rate normal. Temperature normal. Oxygen saturation normal. Appearance: Alert. Oriented X3. No acute distress. Head: Normal external exam. Normocephalic. Atraumatic. No Del Valle signs noted. No raccoon eyes noted Eyes: PERRLA. EOMI. Conjunctiva and sclera normal. Eyelids normal. ENT: TM's Normal. Pharynx normal. Uvula midline. Moist mucous membranes. No trismus noted. No drooling noted. No muffled voice noted. Neck: Normal inspection. Neck supple. FROM. No adenopathy. Thyroid Normal. No meningeal signs. No neck mass noted. CVS: Normal heart rate and rhythm. Heart sound normal. No murmurs noted. Pulses normal throughout. Respiratory: No respiratory distress. Painless inspiration. Breath sounds normal. No wheezes/rales/rhonchi noted. Chest nontender. No accessory muscle usage noted or decreased air movement noted. Abdomen: Soft and nontender. Bowel sounds normal in all 4 quadrants. No distention noted. No organomegaly noted. No visible injury noted. Back: No CVA tenderness. Full range of motion noted. Skin: Skin warm and dry. Normal skin color. Normal skin turgor. No rashes/lesions/lacerations noted. Extremities: No lower extremity edema. Extremities exhibit normal range of motion. Extremities nontender. Neuro: Oriented X 3. Cranial nerve exam: II-XII are grossly intact No motor deficit. No sensory deficit. Reflexes normal. Course Course Course Narrative: s/p head/ neck injury due to work related injury been having dizziness and neck pain since then, normal visual acuity today with no blurry vision. Normal neuro exam, no weakness, no numbness, unremarkable CT head and neck for cervical spine injuries. As discussed with the patient will provide with muscle relaxants and NSAIDs. Medical Decision Making Differential Diagnosis Differential Diagnoses: The differential diagnosis associated with the presentation includes ( Intracranial bleed, cervical spine injury, cervical spine sprain, muscle spasm.) Admission/Observation Consideration of admission/observation: Escalation of care including admis nessa/observation considered Independent Interpretation I performed an independent interpretation of an: CT Scan ( Head/C-spine;1. No acute visible fracture or dislocation. 2. Mild multilevel degenerative changes. No acute intracranial pathology. ) Radiology Impression Discussion of test interpretation with radiology: I have reviewed the radiologist's reading. Discharge Plan Discharge Clinical Impression: Closed head injury, Torticollis Patient Disposition: Home, Self-Care Instructions: Neck Pain (ED) Prescriptions: New cyclobenzaprine 10 mg tablet 10 mg PO BEDTIME PRN (Reason: muscle spasm) Qty: 10 0RF ibuprofen 600 mg tablet 600 mg PO TID PRN (Reason: pain) Qty: 20 0RF No Action diphenhydramine HCl [Benadryl] 25 mg capsule 50 mg PO TID PRN (Reason: allergy symptoms) Qty: 20 0RF trazodone 50 mg tablet 50 mg PO BEDTIME fluoxetine 20 mg capsule 20 mg PO DAILY lamotrigine 200 mg tablet 200 mg PO BID pantoprazole 40 mg tablet,delayed release (DR/EC) 40 mg PO DAILY Qty: 90 1RF Referrals: Adalberto Dunn FNP-BC [Primary Care Provider] - Stand Alone Forms: Work/School Release
[2023-03-29 20:18] VITALS: BP 122/73; PULSE 72; RESP 20; TEMP 36.6; O2SAT 98
== END 2023-03-29 20:19 | disposition home or self-care (01) ==
PROVIDERS: Emergency Provider Emergency Medicine; PCP Nurse Practitioner Family
DX: S09.90XA Unspecified injury of head, initial encounter (principal); W22.09XA Striking against other stationary object, initial encounter; M43.6 Torticollis; H53.8 Other visual disturbances; F17.210 Nicotine dependence, cigarettes, uncomplicated; Y93.9 Activity, unspecified; Y92.9 Unspecified place or not applicable; Y99.0 Civilian activity done for income or pay
CPT/HCPCS: 70450; 72125; 99284

== ENCOUNTER 2023-07-11 14:49 | Outpatient (AMB) | payer OTHER, SELFPAY ==
[2023-07-11 14:51] VITALS: BP 114/72; PULSE 67; BMI 24.5
--- NOTE | 2023-07-11 14:51 | A.OFFVIS_ITS ---
Intake Vital Signs 07/11/23 14:51 Height 6 ft Weight 180 lb 5.41 oz BMI 24.5 BP 114/72 Blood Pressure Location Lt brachial Position Sitting Pulse 67 Pulse Source Monitor Intake Visit Reasons: 1 yr fu Allergies No Known Allergies Allergy (Verified 07/11/23 14:55) Medication List - Last Reconciled 07/11/23 by Kandi Amaro, RICCI-C No Known Home Meds HPI 1 yr fu HPI Details Artemio is a 42-year-old male who was previously seen in our office for preop clearance for knee surgery. He did report some atypical sounding chest discomfort. He had undergone an echocardiogram and Holter monitor and was cleared for surgery and set up for a 1 year follow-up. Today he reports that he has done generally well over the last year. He has not had any cardiac concerns. He had his knee surgery without known cardiac co mplications. He denies any chest discomfort at rest or with activity. His prior left-sided chest discomfort has fully resolved. He has no shortness of breath, palpitations, lightheadedness, presyncope, syncope, PND, orthopnea or edema. He does believe he has sleep apnea. He has some daytime sleepiness and does not feel well rested upon awakening. Has had witnessed apnea episodes and snoring. 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 He tolerates this without concerning symptoms. He takes no routine medications. 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[employer], 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 Review of Systems Const All systems reviewed & are unremarkable except as noted in HPI and below ENT Denies dizziness Card Details: palpitation at times, last a second Denies chest pain, Denies chest pain at rest, Denies chest pain with activity, Denies rapid heart rate, Denies pedal edema, Denies edema, Denies leg edema, Denies lightheadedness, Denies palpitations, Denies dyspnea, Denies dyspnea on exertion and Denies orthopnea Resp Details: does not sleep well Denies cough, Denies dyspnea and Denies dyspnea on exertion GI Denies hematochezia and Denies change in stool character Musc Denies abnormal gait, Denies limited range of motion, Denies muscle cramps, Denies muscle weakness, Denies numbness, Denies radiating pain into limb, Denies stiffness and Denies tingling Neuro Denies abnormal gait, Denies dizziness, Denies numbness and Denies tingling Endo Denies palpitations Physical Exam Vital Signs: Last Vital Signs Pulse 67 07/11/23 14:51 BP 114/72 07/11/23 14:51 BMI result Body Mass Index 24.5 Const General: cooperative, healthy appearing, comfortable and no acute distress Orientation/consciousness: patient oriented x3 Neck Neck: Yes normal visual inspection and Yes no JVD Resp Effort & Inspection: normal respiratory effort Auscultation: clear to auscultation bilaterally, no crackles, no rales, no rhonchi and no wheezes Cardio Jugular venous distension: no JVD Rate: regular rate Rhythm: regular rhythm Heart sounds: S1 normal heart sound present, S2 normal heart sound present, no gallops, no murmurs and no rubs Peripheral pulses: Peripheral pulses 2+ throughout Neuro General: patient oriented x3 Extrem General: Yes normal to inspection, No no pedal edema and No calf tenderness Psych Appearance: grossly normal Mental Status: mental status grossly normal Speech and movement: Normal speech and movement present Office Procedures EKG Details: Today, read by me, sinus bradycardia with sinus arrhythmia, occasional PVC, rate 67, QTC 424 milliseconds [id number], Complete Assessment & Plan Assessment & Plan (1) Sleep apnea: Code(s): G47.30 - Sleep apnea, unspecified Plan: Patient believes he has sleep apnea. He has had witnessed episodes of apnea and snoring. He has woken up with a gasp, had daytime sleepiness and does not feel refreshed in the morning. A Holter monitor was done on 03/22/2022 for 3 days showing sinus rhythm with average heart rate 62 per, frequent sinus bradycardia, 50% of time heart rate below 60, 7 pauses greater than 2.5 seconds noted with longest pause 2.75 seconds occurring during sleep time. An EKG done today shows sinus rhythm, 2 PVCs, no acute ST or T-wave abnormalities, rate 67. With his cardiac pauses and symptoms suggesting sleep apnea will have him do a home sleep study test. He is unsure at this time if he would be able to sleep with a mask if that was eventually required of him. Plan to call him with sleep study results once available. If he does have sleep apnea that is confirmed and eventually does have CPAP therapy, will then plan for repeat Holter monitor to evaluate cardiac pauses. Cardiology office visit 6 months, sooner if needed (2) Sinus pause: Code(s): I45.5 - Other specified heart block Plan: Sinus pauses noted on Holter monitor as above. Occurring during sleep time. Patient denies any daytime lightheadedness, presyncope, syncope. He has good activity tolerance. (3) Chest pain: Code(s): R07.9 - Chest pain, unspecified Plan: Previously had reported some chest discomfort. He tells me his chest discomfort has fully resolved. He has no symptoms that are concerning for angina. EKG done today does not look ischemic. Signs and symptoms of angina reviewed. Plan Time spent on chart review, documentation, interview and assessment Orders: Orders RT home sleep study Today G47.30 - Sleep apnea, unspecified Coding Level of Care Code Est Pt Level 3 (06048) Diagnoses Sleep apnea G47.30 Sinus pause I45.5 Chest pain R07.9 CPT Codes EKG - CPT: [id number], Complete ([id number]) Time Spent (min) 24
== END 2023-07-11 15:37 | disposition home or self-care (01) ==
PROVIDERS: PCP Nurse Practitioner Family; Visit Provider Nurse Practitioner Family
DX: G47.30 Sleep apnea, unspecified (principal); I45.5 Other specified heart block; R07.9 Chest pain, unspecified
CPT/HCPCS: 93010; 99213

== ENCOUNTER → 2023-07-11 14:49 | Outpatient (BNVA) | payer OTHER, SELFPAY | PROVIDERS: PCP Nurse Practitioner Family; Visit Provider Nurse Practitioner Family | DX: I45.5 Other specified heart block (principal); R07.89 Other chest pain; G47.30 Sleep apnea, unspecified | CPT/HCPCS: 93005 ==

== ENCOUNTER → 2023-09-10 10:03 | Outpatient (REF) | payer OTHER, SELFPAY | LOC: HO.SL 10:03 | PROVIDERS: PCP Nurse Practitioner Family; Visit Provider Nurse Practitioner Family | DX: G47.30 Sleep apnea, unspecified (principal); R06.83 Snoring | CPT/HCPCS: 95806 ==

== ENCOUNTER → 2023-09-10 10:10 | Outpatient (BNV) | payer OTHER, SELFPAY | PROVIDERS: PCP Nurse Practitioner Family; Visit Provider Internal Medicine | DX: R06.83 Snoring (principal) | CPT/HCPCS: 95806 ==

== ENCOUNTER 2024-03-01 11:57 | Outpatient (AMB) | payer OTHER, SELFPAY ==
--- NOTE | 2024-03-01 12:10 | MHC.OFFWIV ---
Intake Vital Signs 03/01/24 12:13 Height 6 ft Weight 175 lb BMI 23.7 BP 130/80 Blood Pressure Location Rt brachial Position Sitting Pulse 87 Pulse Source Pulse Oximeter Pulse Oximetry (%) 98 Oxygen Delivery Method Room Air Intake Visit Reasons: EP-neck pinch nerve neck run to lt shoulder Intake Note: Patient here for left shoulder pain that initially started with neck pain, and about 2-3 months ago the pain started radiating down the whole arm. He states his hand is always numb now. Patient Tobacco Use Status: Current everyday Tobacco user Allergies No Known Allergies Allergy (Verified 03/01/24 12:15) Do you need a note to return to daycare/school/sports/work: No HPI HPI Comments History of Present Illness Details Patient presents to the walk-in today for sick visit Complaining of neck pain with radiation down the left arm for last 9 months Endorses burning numbness tingling down the left arm to include the left pinky and ring finger He has been going to chiropractor without improvement of his symptoms He has not been taking any medications for this Denies known injury, fall, trauma though does report several years ago hitting his head while at work in is unsure if this is a result of that injury [facility] Medical History Celiac disease GERD (gastroesophageal reflux disease) Surgical History History of esophagogastroduodenoscopy (EGD) History of back surgery History of surgery on lower extremity Family History Father Stroke Mother H/O heart artery stent Social History Alcohol intake: unknown Patient Tobacco Use Status: Current everyday Tobacco user Tobacco use type: Cigarette and Smokeless Tobacco Cigarettes Per Day: 6 Years Smoked: 8 +/- e-Cigarette/Vaping Use: Currently Using Substance Use Type: Crack/Cocaine Current occupational status: employed 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 Answers questions appropriately. Fully engaged in examination. Skin: warm, dry, intact HEENT: Normocephalic. Hearing intact. Cardiac: External chest normal in appearance. Respiratory: No cough, audible wheezing or stridor. Abdomen: without gross distension. MS: No obvious swelling or deformities. Cervical Spine: Visible inspection without gross abnormality Minimally tender to palpation midline cervical vertebrae and cervical paraspinal muscles Full range motion Spurling compression test positive BUE strength 5/5 Elvey's tension test positive on the left Neurological: Oriented to person, place, time and situation. Thought process intact. No gait abnormalities appreciated. Psychiatric: Appropriate mood and affect. Good judgment and insight. Assessment & Plan Assessment & Plan (1) Cervicalgia: Code(s): M54.2 - Cervicalgia (2) Cervical radiculopathy: Code(s): M54.12 - Radiculopathy, cervical region Plan X-ray ordered for evaluation With cyclobenzaprine 5 mg p.o. 3 times daily as needed. Patient advised on cautions for use Diclofenac 50 mg twice daily as needed, patient advised on cautions for use. Take with food, do not take with any other nonsteroidal anti-inflammatory medications. Message was sent to patient's primary care doctor requesting referral to relations specialist, patient likely will need MRI/EMG. Follow up with PCP or return here for any new or worsening symptoms. Orders: Orders XR cervical spine w flex/ext Today M54.2 - Cervicalgia Medications: New cyclobenzaprine No driving while taking this medication. May cause drowsiness. Do not take with other [employer] suppressants. 5 mg PO TID PRN 30 tabs 0RF muscle spasm diclofenac potassium Do not take with any other nonsteroidal anti-inflammatory medications. Take with food. 50 mg PO BID 60 tabs 0RF Coding Level of Care Code Est Pt Level 3 (74873) Diagnoses Cervicalgia M54.2 Cervical radiculopathy M54.12
[2024-03-01 12:13] VITALS: BP 130/80; PULSE 87; O2SAT 98; BMI 23.7
== END 2024-03-01 12:47 | disposition home or self-care (01) ==
PROVIDERS: PCP Nurse Practitioner Family; Visit Provider Registered Nurse Emergency
DX: M54.2 Cervicalgia (principal); M54.12 Radiculopathy, cervical region
CPT/HCPCS: 99213

== ENCOUNTER 2024-03-01 13:29 | Outpatient (REF) | payer OTHER, SELFPAY ==
--- NOTE | ~2024-03-01 | XR_ITS ---
EXAMINATION: XR CERVICAL SPINE CLINICAL INFORMATION: Cervicalgia COMPARISON: X-ray of the cervical spine demonstrate 2019. CT of the cervical spine March 2023 TECHNIQUE: 4 views of the cervical spine, inclusive of flexion and extension views, were obtained. FINDINGS: Exam is partially limited as the cervicothoracic junction is partially obscured by overlying soft tissues Vertebral bodies are normally aligned with normal height. There is persistent mild degenerative disc change at C6-C7 with endplate osteophytes and perhaps mild disc space narrowing. There is minimal degenerative disc changes present at the C4-C5 level with minimal endplate osteophytes without disc space narrowing unchanged. Remaining disc levels normal. Facets are normal. Surrounding bones soft tissues normal. XR/XR cervical spine w flex/ext IMPRESSION: Mild spondylosis of cervical spine unchanged Electronically signed by: Wild [place] MD 03/17/2024 06:25 AM EDT
== END 2024-03-01 13:30 | disposition home or self-care (01) ==
LOC: HO.HMGCX 13:29
PROVIDERS: PCP Nurse Practitioner Family; Visit Provider Registered Nurse Emergency
DX: M54.2 Cervicalgia (principal)
CPT/HCPCS: 72052

== ENCOUNTER 2024-03-17 08:37 | Outpatient (AMB) | payer OTHER, SELFPAY ==
[2024-03-17 08:42] VITALS: BP 135/78; PULSE 62; O2SAT 99; BMI 23.7
--- NOTE | 2024-03-17 08:42 | MHC.OFFVIS ---
Vital Signs 03/17/24 08:42 Height 6 ft Weight 175 lb BMI 23.7 BP 135/78 Blood Pressure Location Rt brachial Position Sitting Pulse 62 Pulse Source Pulse Oximeter Pulse Oximetry (%) 99 Oxygen Delivery Method Room Air Intake Visit Reasons: Radiculopathy, cervical region Allergies No Known Allergies Allergy (Verified 03/17/24 08:42) Medication List - Last Reconciled 03/17/24 by Trish Dillon cyclobenzaprine 5 mg PO TID PRN diclofenac potassium 50 mg PO BID HPI Comments Details: Artemio is a very pleasant 43-year-old male who presented to the office today for evaluation and management of his left neck and arm pain He has been suffering with this pain for approximately 9 months. Pain started after he was going up into a crawl space and hit his head on the entrance door Endorses left sided neck pain with radiation down the left arm to the hand Reports burning, itching, numbness, tingling of the left arm Patient has tried chiropractor, muscle relaxers, nonsteroidal anti-inflammatory medications all without improvement of his symptoms Recently evaluated at the walk-in and sent here for evaluation. X-ray was performed, results as per below. Pain today is rated as a 1/10. He reports the burning numbness tingling and itching is more bothersome than the actual ?pain? Pain is intermittent throughout the day and night. In terms of muscle damage condition is described as spasming, hot, burning, tingling, shocking, numb, pins and needle Pain is negatively impacting patient's enjoyment of life, general activity, mood, normal work and sleep 03/01/24 visit from [facility]: Patient presents to the walk-in today for sick visit Complaining of neck pain with radiation down the left arm for last 9 months Endorses burning numbness tingling down the left arm to include the left pinky and ring finger He has been going to chiropractor without improvement of his symptoms He has not been taking any medications for this Denies known injury, fall, trauma though does report several years ago hitting his head while at work in is unsure if this is a result of that injury [facility] Medical History Celiac disease GERD (gastroesophageal reflux disease) Surgical History History of esophagogastroduodenoscopy (EGD) History of back surgery History of surgery on lower extremity Family History Father Stroke Mother H/O heart artery stent Social History Alcohol intake: unknown Patient Tobacco Use Status: Current everyday Tobacco user Tobacco use type: Cigarette and Smokeless Tobacco Cigarettes Per Day: 6 Years Smoked: 8 +/- e-Cigarette/Vaping Use: Currently Using Substance Use Type: Crack/Cocaine Current occupational status: employed Current occupation: [employer] Review of Systems Const All systems reviewed & are unremarkable except as noted in HPI and below Physical Exam Vital Signs: Last Vital Signs Pulse 62 03/17/24 08:42 BP 135/78 03/17/24 08:42 Pulse Ox 99 03/17/24 08:42 Oxygen Delivery Method Room Air 03/17/24 08:42 BMI result Body Mass Index 23.7 General: awake, alert, oriented. Answers questions appropriately. Fully engaged in examination. Skin: warm, dry, intact HEENT: Normocephalic. Hearing intact. Cardiac: External chest normal in appearance. Respiratory: No cough, audible wheezing or stridor. Abdomen: without gross distension. MS: No obvious swelling or deformities. Cervical Spine: Visible inspection without gross abnormality Minimally tender to palpation midline cervical vertebrae and cervical paraspinal muscles Decreased range motion, most notable with left lateral flexion Spurling compression test positive BUE strength 5/5 Elvey's tension test negative Neurological: Oriented to person, place, time and situation. Thought process intact. No gait abnormalities appreciated. Psychiatric: Appropriate mood and affect. Good judgment and insight. Results Reviewed Results Reviewed: 03/01/24 XR/XR cervical spine w flex/ext FINDINGS: Exam is partially limited as the cervicothoracic junction is partially obscured by overlying soft tissues Vertebral bodies are normally aligned with normal height. There is persistent mild degenerative disc change at C6-C7 with endplate osteophytes and perhaps mild disc space narrowing. There is minimal degenerative disc changes present at the C4-C5 level with minimal endplate osteophytes without disc space narrowing unchanged. Remaining disc levels normal. Facets are normal. Surrounding bones soft tissues normal. IMPRESSION: Mild spondylosis of cervical spine unchanged Assessment & Plan Assessment & Plan (1) Arm paresthesia, left: Code(s): R20.2 - Paresthesia of skin Category: Medical (2) Cervical radiculopathy: Code(s): M54.12 - Radiculopathy, cervical region Category: Medical Plan Artemio is a very pleasant 43-year-old male who presented to the office today for evaluation management of his left neck and arm pain. History, physical exam and provocative testing consistent with cervical radiculopathy MRI ordered for evaluation, patient has failed greater than 3 months of conservative therapy. Patient requesting open MRI, order will be sent to [facility] EMG ordered for evaluation We will trial amitriptyline 10 mg p.o. at bedtime. Continue with anti-inflammatories as prescribed Continue with cyclobenzaprine 5 mg as needed All questions and concerns were answered, patient agrees with the plan. Follow up after MRI/EMG, sooner if needed Orders: Orders MR cervical spine wo con Today M54.12 - Radiculopathy, cervical region NE electromyogram (EMG) Today R20.2 - Paresthesia of skin Medications: New amitriptyline 10 mg PO BEDTIME 30 tabs 1RF Coding Level of Care Code New Pt Level 4 (28244) Complex EM visit Add On G2211 Diagnoses Arm paresthesia, left R20.2 Cervical radiculopathy M54.12
== END 2024-03-17 09:04 | disposition home or self-care (01) ==
PROVIDERS: PCP Nurse Practitioner Family; Visit Provider Registered Nurse Emergency
DX: R20.2 Paresthesia of skin (principal); M54.12 Radiculopathy, cervical region
CPT/HCPCS: 99204

== ENCOUNTER → 2024-03-17 08:37 | Outpatient (BNVA) | payer OTHER, SELFPAY | PROVIDERS: PCP Nurse Practitioner Family; Visit Provider Registered Nurse Emergency ==

== ENCOUNTER 2024-04-14 14:03 | Outpatient (REF) | payer OTHER, SELFPAY ==
--- NOTE | 2024-04-14 14:07 | EMG_ITS ---
Chief complaint: Left proximal arm/shoulder pain and numbness, neck pain, numbness on same distribution but also spreads to left hand. He hit his head about 2 years ago and started having right-sided neck pain at that time. That resolved. Then around 1 year ago, started having this left-sided pain. He went to chiropractor without relief. Reason for referral: Evaluate for radiculopathy Referred by: Ashley Fay NP Procedure done: Left upper extremity NCS/EMG Precautions and/or limitations: None The limb temperature was monitored continuously and remained between 32-36 degrees C during the performance of the NCS. Nerve Conduction Studies Anti Sensory Summary Table ?Stim Site NR Onset (ms) Norm Onset (ms) Peak (ms) Norm Peak (ms) O-P Amp (?V) Norm O-P Amp Site1 Site2 Delta-0 (ms) Dist (cm) Darryl (m/s) Norm Darryl (m/s) Left Median Anti Sensory (2nd Digit) Wrist ? 2.8 3.8 <3.6 12.2 >10 Wrist 2nd Digit 2.8 14.0 50 Left Ulnar Anti Sensory (5th Digit) Wrist ? 2.3 3.2 <3.7 23.6 >15.0 Wrist 5th Digit 2.3 14.0 61 Motor Summary Table ?Stim Site NR Onset (ms) Norm Onset (ms) O-P Amp (mV) Norm O-P Amp iAmp (mV) Amp (1st) (%) Site1 Site2 Delta-0 (ms) Dist (cm) Darryl (m/s) Norm Darryl (m/s) Left Median Motor (Abd Poll Brev) Wrist ? 3.7 <3.9 11.5 >4.5 13.2 100.0 Elbow Wrist 4.3 24.5 57 >45 Elbow ? 8.0 9.8 11.1 85.2 Left Ulnar Motor (Abd Dig Minimi) Wrist ? 2.7 <3.0 7.4 >5 8.7 100.0 B Elbow Wrist 3.5 19.5 56 >45 B Elbow ? 6.2 6.8 8.4 91.9 A Elbow B Elbow 1.3 10.0 77 >45 A Elbow ? 7.5 7.2 9.3 97.3 Comparison Summary Table ?Stim Site NR Peak (ms) Norm Peak (ms) P-T Amp (?V) Site1 Site2 Delta-P (ms) Norm Delta (ms) Left Median/Radial Dig I Comparison (Digit 1 - 10cm) Median ? 3.3 <2.9 39.8 Median Radial 0.5 Radial ? 2.8 <2.8 5.4 EMG ?Side Muscle Nerve Root Ins Act Fibs Psw Amp Dur Poly Recrt Int Pat Comment Left 1stDorInt Ulnar C8-T1 Nml Nml Nml Nml Nml 0 Nml Complete Left FlexCarRad Median C6-7 Nml Nml Nml Nml Nml 0 Nml Complete Left Biceps Musculocut C5-6 Nml Nml Nml Nml Nml 0 Nml Complete Left Triceps Radial C6-7-8 Incr 1+ 1+ Nml Nml 0 Reduced Complete Left Deltoid Axillary C5-6 Nml Nml Nml Nml Nml 0 Nml Complete Paraspinal EMG ?Side Muscle Nerve Root Ins Act Fibs Psw Comment Left Cervical Upper Rami Nml Nml Nml Left Cervical Mid Rami Nml Nml Nml Left Cervical Lower Rami Incr 1+ 1+ FINDINGS: Left median sensory nerve showed prolonged slightly peak latency. Interlatency difference between left median and radial sensory nerves was 0.5. All other nerves tested were within normal. Concentric needle EMG was performed in selected muscles of the left upper extremity and cervical paraspinals. Study revealed signs of electric abnormalities as shown in the table above. Left triceps showed increased insertional activity, PSWs and fibrillations, and reduced recruitment. Left lower cervical paraspinals showed increased insertional activity, PSWs and fibrillations. IMPRESSION: 1. This is an abnormal study. 2. There is electrodiagnostic suggestive of left C7/8 acute/subacute radiculopathy. 3. There is also electrodiagnostic evidence for mild left median neuropathy at the wrist, could be Carpal Tunnel Syndrome. 4. There is no electrodiagnostic evidence for ulnar neuropathy. CLINICAL COMMENT: Further cervical spine imaging such as MRI would be helpful. Thank you for your kind referral. Mary Zaragoza MD, JORDAN Board Certified, [place] Board of Physical Medicine and Rehabilitation (ABPMR) Board Certified, [place] Board of Electrodiagnostic Medicine (ABEM) [place] [id number] [facility]
== END 2024-04-14 14:04 | disposition home or self-care (01) ==
LOC: HO.NEURO 14:03
PROVIDERS: PCP Nurse Practitioner Family; Visit Provider Registered Nurse Emergency
DX: R20.2 Paresthesia of skin (principal)
CPT/HCPCS: 95886; 95909

== ENCOUNTER → 2024-04-14 14:07 | Outpatient (BNV) | payer OTHER, SELFPAY | PROVIDERS: PCP Nurse Practitioner Family; Visit Provider Physical Medicine & Rehabilitation | DX: G56.02 Carpal tunnel syndrome, left upper limb (principal) | CPT/HCPCS: 95886; 95909 ==

== ENCOUNTER 2024-04-15 14:49 | Outpatient (AMB) | payer OTHER, SELFPAY ==
--- NOTE | 2024-04-15 14:21 | MHC.OFFVIS ---
Intake Visit Reasons: Discuss EMG results Allergies No Known Allergies Allergy (Verified 03/17/24 08:42) HPI Comments Details: Telephone visit completed today for follow-up, review of recent EMG EMG reviewed, results as per below Continues with left-sided neck pain with radiation down the arm into the hand Over the last 6 months patient has tried chiropractor, nonsteroidal anti-inflammatory medications, muscle relaxers and home exercise program all without improvement of his symptoms Prior: Artemio is a very pleasant 43-year-old male who presented to the office today for evaluation and management of his left neck and arm pain He has been suffering with this pain for approximately 9 months. Pain started after he was going up into a crawl space and hit his head on the entrance door Endorses left sided neck pain with radiation down the left arm to the hand Reports burning, itching, numbness, tingling of the left arm Patient has tried chiropractor, muscle relaxers, nonsteroidal anti-inflammatory medications all without improvement of his symptoms Recently evaluated at the walk-in and sent here for evaluation. X-ray was performed, results as per below. Pain today is rated as a 1/10. He reports the burning numbness tingling and itching is more bothersome than the actual ?pain? Pain is intermittent throughout the day and night. In terms of muscle damage condition is described as spasming, hot, burning, tingling, shocking, numb, pins and needle Pain is negatively impacting patient's enjoyment of life, general activity, mood, normal work and sleep 03/01/24 visit from walk-in: Patient presents to the walk-in today for sick visit Complaining of neck pain with radiation down the left arm for last 9 months Endorses burning numbness tingling down the left arm to include the left pinky and ring finger He has been going to chiropractor without improvement of his symptoms He has not been taking any medications for this Denies known injury, fall, trauma though does report several years ago hitting his head while at work in is unsure if this is a result of that injury [facility] Medical History Celiac disease GERD (gastroesophageal reflux disease) Surgical History History of esophagogastroduodenoscopy (EGD) History of back surgery History of surgery on lower extremity Family History Father Stroke Mother H/O heart artery stent Social History Alcohol intake: unknown Patient Tobacco Use Status: Current everyday Tobacco user Tobacco use type: Cigarette and Smokeless Tobacco Cigarettes Per Day: 6 Years Smoked: 8 +/- e-Cigarette/Vaping Use: Currently Using Substance Use Type: Crack/Cocaine Current occupational status: employed Current occupation: [employer], [employer] Review of Systems Const All systems reviewed & are unremarkable except as noted in HPI and below Physical Exam Telephone visit only, vital signs and physical exam deferred Telehealth Telehealth Telehealth Platform: Telephone Location of provider rendering services: practice address Location of patient: address on file Patient Identification confirmed using: Name, : Yes Telehealth method: voice only Patient verbally consented to treatment: Yes Patient verbally consented to billing insurance company: Yes Patient informed of any privacy concerns related to visit: Yes Minutes spent on Phone/Video with Pt.: 11 Results Reviewed Results Reviewed: 04/14/24 EMG IMPRESSION: 1. This is an abnormal study. 2. There is electrodiagnostic suggestive of left C7/8 acute/subacute radiculopathy. 3. There is also electrodiagnostic evidence for mild left median neuropathy at the wrist, could be Carpal Tunnel Syndrome. 4. There is no electrodiagnostic evidence for ulnar neuropathy. 03/01/24 XR/XR cervical spine w flex/ext FINDINGS: Exam is partially limited as the cervicothoracic junction is partially obscured by overlying soft tissues Vertebral bodies are normally aligned with normal height. There is persistent mild degenerative disc change at C6-C7 with endplate osteophytes and perhaps mild disc space narrowing. There is minimal degenerative disc changes present at the C4-C5 level with minimal endplate osteophytes without disc space narrowing unchanged. Remaining disc levels normal. Facets are normal. Surrounding bones soft tissues normal. IMPRESSION: Mild spondylosis of cervical spine unchanged Assessment & Plan Assessment & Plan (1) Arm paresthesia, left: Code(s): R20.2 - Paresthesia of skin Category: Medical (2) Cervical radiculopathy: Code(s): M54.12 - Radiculopathy, cervical region Category: Medical Plan Telephone visit completed today for follow-up left cervical radiculopathy EMG reviewed, results as per above Patient awaiting MRI, initially declined by insurance. Will appeal given patient has failed conservative treatment. Over the last 6 months he has tried chiropractor, home exercise program, nonsteroidal anti-inflammatory medications, muscle relaxers all without improvement of his symptoms. Continue with amitriptyline 10 mg p.o. at bedtime. Continue with diclofenac as prescribed All questions and concerns were answered, patient agrees with the plan. Follow up after MRI, sooner if needed Medications: Refilled diclofenac potassium Do not take with any other nonsteroidal anti-inflammatory medications. Take with food. 50 mg PO BID 60 tabs 0RF Coding Level of Care Code Tele Est Pt Level 3 (27688) Complex EM visit Add On G2211 Diagnoses Arm paresthesia, left R20.2 Cervical radiculopathy M54.12
== END 2024-04-15 14:50 | disposition home or self-care (01) ==
LOC: HO.PMC 14:49
PROVIDERS: PCP Nurse Practitioner Family; Visit Provider Registered Nurse Emergency
DX: R20.2 Paresthesia of skin (principal); M54.12 Radiculopathy, cervical region
CPT/HCPCS: 99213

== ENCOUNTER → 2024-04-15 14:49 | Outpatient (BNVA) | payer OTHER, SELFPAY | PROVIDERS: PCP Nurse Practitioner Family; Visit Provider Registered Nurse Emergency | DX: R20.2 Paresthesia of skin (principal); M54.12 Radiculopathy, cervical region ==

== ENCOUNTER 2024-04-21 08:12 | Outpatient (AMB) | payer OTHER, SELFPAY ==
--- NOTE | 2024-04-21 08:35 | AM.OFFWIN_ITS ---
Intake Vital Signs 3 04/21/24 08:36 Height 6 ft Weight 177 lb BMI 24.0 BP 130/82 Blood Pressure Location Rt brachial Position Sitting Pulse 87 Pulse Source Pulse Oximeter Temp 98.0 F Temp Source Oral Pulse Oximetry (%) 99 Intake Visit Reasons: EP-chin infection Intake Note: pt is here for chin infection Patient Tobacco Use Status: Current everyday Tobacco user Allergies No Known Allergies Allergy (Verified 04/21/24 08:38) Medication List - Last Reconciled 04/21/24 by Antonio Sims MD amitriptyline 10 mg PO BEDTIME cyclobenzaprine 5 mg PO TID PRN diclofenac potassium 50 mg PO BID Do you need a note to return to daycare/school/sports/work: No HPI EP-chin infection 2 HPI0 Details Patient is a 43-year-old gentleman came in today to be evaluated for possible infection on his chin Patient says that the lump is there for past 2 months He is used to getting these all over his body and usually they resolve on their own Review system reveals no fever no chills no throat pain no nausea no vomiting On examination patient have infected cyst right chin area Which is firm without any fluctuation I am treating him with Augmentin b.i.d. for 10 days Patient was encouraged to follow up with the primary care or in walk-in clinic if not resolved. 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 Slightly inflamed cyst without any fluctuation or discharge, size of hawkins, no lymphadenopathy noted, throat within normal limit Resp Effort & Inspection: normal respiratory effort and able to speak in complete sentences Neuro General: patient oriented x3 Psych Mental Status: mental status grossly normal Assessment & Plan Assessment & Plan (1) Infected epidermoid cyst: Code(s): L72.0 - Epidermal cyst; L08.9 - Local infection of the skin and subcutaneous tissue, unspecified Plan Patient is a 43-year-old gentleman came in today to be evaluated for possible infection on his chin Patient says that the lump is there for past 2 months He is used to getting these all over his body and usually they resolve on their own Review system reveals no fever no chills no throat pain no nausea no vomiting On examination patient have infected cyst right chin area Which is firm without any fluctuation I am treating him with Augmentin b.i.d. for 10 days Patient was encouraged to follow up with the primary care or in walk-in clinic if not resolved. Medications: New 2 amoxicillin-pot clavulanate 875-125 mg 1 tab PO BID 20 tabs 0RF 10 days Coding Level of Care Code Est Pt Level 3 (26358) Diagnoses Infected epidermoid cyst L72.0; L08.9
[2024-04-21 08:36] VITALS: BP 130/82; PULSE 87; TEMP 36.7; O2SAT 99; BMI 24.0
== END 2024-04-21 10:21 | disposition home or self-care (01) ==
PROVIDERS: PCP Nurse Practitioner Family; Visit Provider Internal Medicine
DX: L72.0 Epidermal cyst (principal); L08.9 Local infection of the skin and subcutaneous tissue, unspecified

== ENCOUNTER → 2024-04-21 08:12 | Outpatient (BNVA) | payer OTHER, SELFPAY | PROVIDERS: PCP Nurse Practitioner Family; Visit Provider Internal Medicine ==

== ENCOUNTER 2024-07-12 13:08 | Outpatient (AMB) | payer OTHER, SELFPAY ==
[2024-07-12 13:12] VITALS: BP 138/82; PULSE 81; O2SAT 97; BMI 24.3
--- NOTE | 2024-07-12 13:12 | MHC.PC.OV ---
Vital Signs 07/12/24 13:12 Height 6 ft Weight 179 lb BMI 24.3 BP 138/82 Blood Pressure Location Rt brachial Position Sitting Pulse 81 Pulse Source Pulse Oximeter Pulse Oximetry (%) 97 Oxygen Delivery Method Room Air Intake Visit Reasons: PE Intake Note: pt is here for PE Lump Inspector Required: No Accompanied by: Self / Same As Patient Allergies No Known Allergies Allergy (Verified 07/12/24 13:12) Medication List - Last Reconciled 07/12/24 by FELISA Dupont-BC amitriptyline 10 mg PO BEDTIME cyclobenzaprine 5 mg PO TID PRN diclofenac potassium 50 mg PO BID Tobacco use date assessed: 07/12/24 Dental Screening Dental Screen Date: 07/12/24 Did you have a dental visit in the last 12 months?: Yes Did you have a dental problem in the last 6 months where you did not have access to dental care?: No Was dental information given to patient?: Patient has dentist HPI PE HPI Details History of Present Illness The patient is a 43-year-old male presenting with chronic cervical radiculopathy and right ear effusion. Approximately two years ago, he suffered head trauma after striking a metal object while ascending a ladder, which resulted in severe cervical neck pain. This pain radiates to the left upper extremity and is described as constant (burning, cold, numb, and very painful). An electromyography (EMG) was conducted, revealing left C7-8 radiculopathy and left medial neuropathy at the wrist, suggestive of carpal tunnel syndrome. He demonstrates severe pain primarily with neck flexion to the left, as well as burning and tingling sensations. A Spurling's test was positive on the left side. In addition to these issues, he has recently reported right ear pressure, upon examination, a right ear effusion was noted. The patient also acknowledges having depression and anxiety but denies any suicidal or homicidal ideation. He is a smoker and is aware of the associated health risks. Health Maintenance - Colon cancer screening recommended. - Discussion regarding smoking cessation. - Initiation of nasal steroid medication for right ear effusion. Social History - The patient smokes tobacco and is aware of the associated risks. Review of Systems - Neurologic: Reports depression and anxiety. Denies suicidal ideation. Reports numbness, tingling, and burning in the left upper extremity. - Respiratory: Denies any shortness of breath. - Cardiovascular: Denies any chest pain. - Gastrointestinal: Denies any blood in stools, constipation, or diarrhea. - Otolaryngological: Reports pressure in the right ear. - Musculoskeletal: Reports cervical neck pain radiating to the left upper extremity. Physical Exam General: Cooperative, healthy appearing, comfortable, no acute distress and well developed Orientation: Patient oriented x3 Limitations: No limitations Head: Normal to inspection Ears: Right ear effusion noted Nose: Normal external nose present Face and sinus: Normal facial exam Eyes: Appearance normal, both eyes and all related structures Neck: Positive Spurling's test to the left, with neck flexion to the left and turning head side to side showing positive findings of cervical neck with radiculopathy down the left upper extremity Respiratory: Normal respiratory effort and able to speak in complete sentences. Clear to auscultation bilaterally Cardiovascular: Regular rate and rhythm. Normal S1 and S2 GI: Normal to inspection. Soft to palpation and nontender Skin: No rashes or lesions noted Neuro: Patient oriented x3 Extremities: Significant numbness and tingling pain with burning going down the left upper extremity; + spurlings, + neck flexion to left Results - Electromyography: Abnormal findings indicative of left C7-8 radiculopathy and left medial neuropathy at the wrist. Plan - Order an MRI for evaluation of the cervical spine to further assess the extent of radiculopathy. - Prescribe a nasal steroid medication for the management of right ear effusion. - Initiate a smoking cessation intervention plan. - Recommend ongoing monitoring and management of depression and anxiety, with routine mental health evaluations. - Arrange for a colon cancer screening as per health maintenance protocol. Patient was informed and verbally consented to the use of an ambient scribe for clinic note documentation during this visit. Discussion Notes I discussed with the patient the findings of his EMG indicating radiculopathy and neuropathy. The management of his cervical radiculopathy involves ordering an MRI to obtain a clearer view of the spinal injury and assess any further damage. We have decided to prescribe a nasal steroid spray for the management of his right ear effusion, with a plan to evaluate its effectiveness after two weeks. The risks and benefits of smoking cessation were discussed, and I urged the patient to consider intervention strategies available. Follow-up care will include mental health monitoring for his depression and anxiety, ensuring these conditions are adequately managed. We also reviewed the plan for a colon cancer screening, emphasizing its importance in his health maintenance strategy. Patient Instructions - Use nasal steroid as directed for two weeks; monitor for changes in ear pressure. - Prepare for MRI appointment to further evaluate neck and related symptoms. - Consider smoking cessation resources and support groups. - Schedule and complete the recommended colon cancer screening. - Follow up for mental health support and routine evaluations. - Return to clinic for worsening symptoms or if symptoms do not improve with treatments. [facility] Medical History Celiac disease GERD (gastroesophageal reflux disease) Surgical History History of esophagogastroduodenoscopy (EGD) History of back surgery History of surgery on lower extremity Family History Father Stroke Mother H/O heart artery stent Social History Alcohol intake: unknown Patient Tobacco Use Status: Current everyday Tobacco user Tobacco use type: Cigarette and Smokeless Tobacco Cigarettes Per Day: 6 Years Smoked: 8 +/- e-Cigarette/Vaping Use: Currently Using Substance Use Type: Crack/Cocaine Current occupational status: employed Current occupation: [email or web address], [employer] Cognitive needs: No Hearing needs: No Vision needs: No Questionnaire PHQ-9 Over the last 2 weeks, how often have you been bothered by any of the following problems? 1. Little interest or pleasure in doing things: nearly every day 2. Feeling down, depressed, or hopeless: nearly every day 3. Trouble falling or staying asleep, or sleeping too much: nearly every day 4. Feeling tired or having little energy: nearly every day 5. Poor appetite or overeating: nearly every day 6. Feeling bad about yourself - or that you are a failure or have let yourself or your family down: nearly every day 7. Trouble concentrating on things, such as reading the newspaper or watching television: several days 8. Moving or speaking so slowly that other people could have noticed. Or the opposite - being so fidgety or restless that you have been moving around a lot more than usual: not at all 9. Thoughts that you would be better off or of hurting yourself in some way: several days Total score: 20 Depression Screening Interpretation: Positive (declines treatment currently, psychiatrist. will have BH team reach out to him, denies any si or hi) Depression Screening Follow-up: Existing condition and Declines treatment Depression Screening Done: Yes 61449 - PHQ-9 Billing: Yes Source: Developed by Drs. Jonn Dover, Batool Mir, Tommy Arias and colleagues, with an educational juan manuel from [employer]. Thrive Questionnaire Date Thrive assessed: 07/12/24 I am a: Patient What is your living situation today?: I have a place to live, but I am worried about losing it in the future Within the past 12 months, did the food you bought not last and you didn't have the money to get more?: I choose not to answer this question Within the past 12 months, did you worry whether your food would run out before you got money to buy more?: Sometimes True Do you have trouble paying for medicines?: No Do you have trouble getting transportation to medical appointments?: No Do you have trouble paying your heating and electricity bill?: I choose not to answer this question Do you have trouble taking care of your child, family member or friend?: No Do you have trouble with day-to-day activities such as bathing, preparing meals, shopping, managing finances, etc.?: I choose not to answer this question Are you currently unemployed and looking for a job?: No Are you interested in more education?: No Please select the resources that you would like help with: None Currently or been in a relationship where the following occur: I choose not to answer THRIVE Score: 2 AUDIT C Alcohol Use Questionnaire (AUDIT-C) 1. How often do you have a drink containing alcohol?: Monthly or less 2. How many drinks containing alcohol do you have on a typical day when you are drinking?: 1 or 2 3. How often do you have six or more drinks on one occasion?: Less than monthly Total Score: 2 Score Reviewed/Action Taken: Yes MALCOLM-7 AMB Questionnaire MALCOLM-7 Date MALCOLM - 7 assessed: 07/12/24 Feeling nervous, anxious, or on edge: 3 = Nearly every day Not being able to stop or control worryin = Nearly every day Worrying too much about different things: 3 = Nearly every day Trouble relaxin = Nearly every day Being so restless that it is hard to sit still: 3 = Nearly every day Becoming easily annoyed or irritable: 3 = Nearly every day Feeling afraid as if something awful might happen: 3 = Nearly every day Total MALCOLM-7 score (0-4 normal; 5-9 mild; 10-14 moderate; 15-21 severe): 21 Source: Developed by Drs. Jonn Dover, Batool Mir, Tommy Arias and colleagues, with an educational juan manuel from [employer]. MALCOLM-7 Assessment Billing MALCOLM-7 Assessment Tool: MALCOML-7 Assessment 65895 (declines psychiatrist, will have team reach out to him, denies any si or hi) Physical exam (Primary Care) Vital Signs: Last Vital Signs Pulse 81 07/12/24 13:12 BP 138/82 07/12/24 13:12 Pulse Ox 97 07/12/24 13:12 Oxygen Delivery Method Room Air 07/12/24 13:12 BMI result Body Mass Index 24.3 Tobacco/Smoking Status: Tobacco use Status Tobacco use date assessed 07/12/24 07/12/24 13:13 Patient Tobacco Use Status Current everyday Tobacco 07/12/24 13:13 Tobacco use type Cigarette,Smokeless Tobacco 07/12/24 13:13 e-Cigarette/Vaping Use Currently Using 07/12/24 13:13 PHQ-9: PHQ-9 Score PHQ-9: Total score 07/12/24 13:13 Depression Screening Interpretation: Positive (declines treatment currently, psychiatrist. will have team reach out to him, denies any si or hi) Depression Screening Follow-up: Existing condition and Declines treatment Thrive Assessment: Date of Thrive Assessment Date Thrive assessed 07/12/24 07/12/24 13:13 Currently or been in a relationship where the following occur: I choose not to answer Coding Level of Care Code Est Pt Level 3 (07058) Est Pt Prev Care 40-64y(51665) Diagnoses Screening for colon cancer Z12.11 Physical exam Z00.00 Screening for prostate cancer Z12.5 Cervicalgia M54.2 Cervical radiculopathy M54.12 Skin lesion L98.9 Acute effusion of right ear H65.191 Major depression F32.9 Anxiety F41.9 Additional Codes PHQ-9 - 38457 - PHQ-9 Billing: Yes ([id number]) MALCOLM-7 Assessment Billing - MALCOLM-7 Assessment Tool: MALCOLM-7 Assessment 10531 ([id number]) Assessment & Plan Assessment & Plan (1) Screening for colon cancer: Code(s): Z12.11 - Encounter for screening for malignant neoplasm of colon Category: Medical (2) Physical exam: Code(s): Z00.00 - Encounter for general adult medical examination without abnormal findings Category: Medical (3) Screening for prostate cancer: Code(s): Z12.5 - Encounter for screening for malignant neoplasm of prostate Category: Medical (4) Cervicalgia: Code(s): M54.2 - Cervicalgia Category: Medical (5) Cervical radiculopathy: Code(s): M54.12 - Radiculopathy, cervical region Category: Medical (6) Skin lesion: Code(s): L98.9 - Disorder of the skin and subcutaneous tissue, unspecified Category: Medical (7) Acute effusion of right ear: Code(s): H65.191 - Other acute nonsuppurative otitis media, right ear Category: Medical (8) Major depression: Code(s): F32.9 - Major depressive disorder, single episode, unspecified Category: Medical (9) Anxiety: Code(s): F41.9 - Anxiety disorder, unspecified Category: Medical Plan . Orders: Orders Complete Blood Count Auto Diff Today Z00.00 - Encounter for general adult medical examination without abnormal findings Comprehensive [place]. Panel Fast Today Z00.00 - Encounter for general adult medical examination without abnormal findings TSH reflex Free T4 Today Z00.00 - Encounter for general adult medical examination without abnormal findings Lipid Panel Today Z00.00 - Encounter for general adult medical examination without abnormal findings UA CC w/rflx Micro + Cult Today Z00.00 - Encounter for general adult medical examination without abnormal findings Prostate Specific Antigen Scr Today Z12.5 - Encounter for screening for malignant neoplasm of prostate MR cervical spine wo con Today M54.12 - Radiculopathy, cervical region, M54.2 - Cervicalgia Referrals Gastroenterology Referral Z12.11 - Encounter for screening for malignant neoplasm of colon Dermatology Referral L98.9 - Disorder of the skin and subcutaneous tissue, unspecified Medications: New fluticasone propionate 50 mcg/actuation (Allergy Relief (fluticasone)) administer into each nostril 2 sprays intranasal DAILY 30 days 16 grams 0RF
== END 2024-07-12 13:57 | disposition home or self-care (01) ==
PROVIDERS: PCP Nurse Practitioner Family; Visit Provider Nurse Practitioner Family
DX: Z00.00 Encounter for general adult medical examination without abnormal findings (principal); M54.2 Cervicalgia; M54.12 Radiculopathy, cervical region; L98.9 Disorder of the skin and subcutaneous tissue, unspecified; Z12.11 Encounter for screening for malignant neoplasm of colon; Z12.5 Encounter for screening for malignant neoplasm of prostate; H65.191 Other acute nonsuppurative otitis media, right ear; F32.9 Major depressive disorder, single episode, unspecified; F41.9 Anxiety disorder, unspecified

== ENCOUNTER → 2024-07-12 13:08 | Outpatient (BNVA) | payer OTHER, SELFPAY | PROVIDERS: PCP Nurse Practitioner Family; Visit Provider Nurse Practitioner Family | DX: Z00.00 Encounter for general adult medical examination without abnormal findings (principal); M54.2 Cervicalgia; M54.12 Radiculopathy, cervical region; L98.9 Disorder of the skin and subcutaneous tissue, unspecified; H65.191 Other acute nonsuppurative otitis media, right ear; F33.9 Major depressive disorder, recurrent, unspecified; F41.9 Anxiety disorder, unspecified | CPT/HCPCS: 96127 ==

== ENCOUNTER → 2024-07-28 17:49 | Outpatient (BNV) | payer OTHER, SELFPAY | PROVIDERS: PCP Nurse Practitioner Family; Visit Provider Radiology Diagnostic Radiology | DX: M54.2 Cervicalgia (principal) | CPT/HCPCS: 72141 ==

== ENCOUNTER 2024-12-03 10:10 | Day surgery (SDC) | payer OTHER, SELFPAY ==
--- OUTSIDE RECORDS SUMMARY | 2024-11-09 15:34 | XMS_ITS ---
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 Name Role Phone SANJU HOROWITZ Primary Care Provider Norman Ashley Jr [phone] Allergies No Known Allergies REASON FOR VISIT Patient presents today for a colon screening Medications Medication SIG (Take, Route, Frequency, Duration) Notes Start Date End Date Status Amitriptyline HCl 10 MG TAKE 1 TABLET BY MOUTH AT BEDTIME Oral for 90 Days Active Cyclobenzaprine HCl 5 MG Oral for 30 Days Active Immunizations Vaccine Route Administration Date Status Comme nts Influenza Unknown 11/08/2024 Refused Social History Tobacco Use: Social History Observation Description Date Details (start date - stop date) Current Smoker NA - NA Tobacco Control (Standard) Question Answer Notes Tobacco use: Current smoker Problems Problem Type SNOMED Code ICD Code Onset Dates Problem Status W/U Status Risk Notes Problem Colon cancer screening (476327922) Colon cancer screening (Z12.11) Active confirmed Problem Pre-procedure evaluation check (562385891) Preoperative examination (Z01.818) Active confirmed Vital Signs Temperature 97.3 degrees Fahrenheit 11/09/19 25 Blood pressure systolic 001 mm Hg 11/09/19 25 Blood pressure diastolic 01 mm Hg 025 Height 72.75 in 11/08/2024 Weight 182.2 lbs 11/08/2024 BMI 24.2 kg/m2 11/08/2024 Encounters Encounter Location Date Provider Diagnosis [facility] [address] [place] [address] 11/08/2024 Norman Sykes Jr Colon cancer screening Z12.11 and Preoperative examination Z01.818 Assessments Encounter Date Diagnosis (ICD Code) Assessment Notes Treatment Notes Treatment Clinical Notes Section Notes 11/08/2024 Colon cancer screening (ICD-10 - Z12.11) We discussed colonoscopy today. We discussed risks and benefits of the procedure today. He understands these and agrees to proceed. This will be scheduled at his convenience. 11/08/2024 Preoperative examination (ICD-10 - Z01.818) We discussed colonoscopy today. We discussed risks and benefits of the procedure today. He understands these and agrees to proceed. This will be scheduled at his convenience. Plan Of Treatment Future Test Test Name Order Date COLONOSCOPY 11/08/2024 Next Appt Details Follow Up: 1 Year, Reason: Provider Name:Norman barry Jr, 11/26/2024 01:20:00 PM, [address] [place] [address], [id number], Progress Notes * ADAM CASEYOB:[birth year] (44 yo M)Acc No.[id number]:11/08/2024 Progress Notes Patient:?JACINTOCAROLYN Provider:?Norman Sykes MD :1980???Age:44 Y???Sex:Male John e:11/08/2024 Address:[address] [place], [place] [id number] Pcp:SANJU HOROWITZ Subjective: * Chief Complaints: * ???1. Patient presents today for a colon screening. * HPI: ???New symptom(s):? The patient is a pleasant 44-year-old man seen today for his first preoperative colonoscopy screening. He has no complaints of rectal bleeding or change in his bowel habits. Weight and appetite have been stable. He does have a family history of colon polyps in his father. * ROS:?General/Constitutional:?Change in appetite?denies.?Fatigue?denies.?ENT:?Patient denies?difficulty swallowing.?Respiratory:?Patient denies?shortness of breath.?Cardiovascular:?Patient denies?chest pain.?Gastrointestinal:?Comments?See HPI for details.?Genitourinary:?Difficulty urinating?denies.?Incontinence?denies.?Musculoskeletal:?Patient denies?muscle aches.?Skin:?Patient denies?pruritis.?Neurologic:?Patient denies?low back pain.?Psychiatric:?Patient denies?mental or physical abuse.? * Medical History:?Cervical sp ine stenosis, Celiac disease. * Surgical History:?spinal fus ion/ c 5-c6 disc replacement 2024, lower left leg, titanium jaspreet 1996, right shoulder arthroscopy 2022, right hand surgery , Left ACL tear and repair 06/13 . * Family History:?Father: lary loco, diagnosed with Colon polyps.?Mother: alive.? No family history of colon cancer or liver cancer. * Social History:?Tobacco Use:?Tobacco Control (Standard)?Tobacco use:?Current smoker.?Drugs/Alcohol:?Alcohol Screen?Points: 2, Interpretation: Negative.?Miscellaneous:?Marital status: single. 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 * Medications:?Taking Cycloben zaprine HCl 5 MG Tablet Oral , Taking Amitriptyline HCl 10 MG Tablet TAKE 1 TABLET BY MOUTH AT BEDTIME Oral , Discontinued HYDROcodone-Acetaminophen 5-325 MG Tablet TAKE 1 TABLET BY MOUTH EVERY 4 HOURS NEEDED Oral , Discontinued Tums 500 MG Tablet Chewable 1 tablet Orally Four times a day , Discontinued Lansoprazole 30 MG Capsule Delayed Release 1 capsule before a meal Orally Once a day * Allergies:?N.K.D.A. Objective: * Vitals:?Wt:182.2lbs, Ht: 72. 75 in, BMI:24.2Index, BP:001/01mm Hg, Temp:97.3, Wt- k.65. * Examination: ???General Examination: ?GENERAL APPEARANCE:?in no acute distress.?HEAD:?normocephalic.?EYES:?sclera non-icteric.?ORAL CAVITY:?mucosa moist.?NECK/THYROID:?no lymphadenopathy.?SKIN:?anicteric.?HEART:?S1, S2 normal, no murmurs.?LUNGS:?clear to auscultation bilaterally.?CHEST:?normal shape and expansion.?ABDOMEN:?soft, nontender, nondistended, bowel sounds present, no organomegaly .?EXTREMITIES:?no clubbing, cyanosis, or edema.?PSYCH:?cognitive function intact.? Assessment: * Assessment: 1.?Preoperative examination - Z01.818 (Primary)???2.?Colon cancer screening - Z12.11??? We discussed colonoscopy tod rose. We discussed risks and benefits of the procedure today. He understands these and agrees to proceed. This will be scheduled at his convenience. Plan: * Treatment: * Immunizations:? Influenza (Not administered - Refused: Patient decision) * Procedure Codes:?3017F COLOR ECTAL CA SCREEN DOC REV, G9902 Pt scrn tbco and id as user, G8785 BP SCR NOT PRFRM REC REASON NOS * Preventive Medicine:? ??Counseling:?Smoking?Patient counseled on the dangers of tobacco use and urged to quit.?11/08/2024,?Relapse prevention:?Discussed the importance of a supportive environment and helped identify them..? * Follow Up:?1 Year * * Sign off status: Completed true * Provider:?Norman Sykes MD Date:?0 11/08/2024 Generated for Berry coyle/Juwan/eTransmitting on:?11/09/2024 03:33 PM EDT History and Physical Notes * HPI (History of Present Illness) Category Sub-Category Detail Notes Category Not es New symptom(s) The patient i s a pleasant 44-year-old man seen today for his first preoperative colonoscopy screening. He has no complaints of rectal bleeding or change in his bowel habits. Weight and appetite have been stable. He does have a family history of colon polyps in his father. Examination Category Sub-Category Detail Notes Category Not es General Examination GENERAL APPEARANCE: in no acute di stress HEAD: normocephalic EYES: sclera non-icteric NECK/THYROID: no lymphadenopathy HEART: S1, S2 normal, no mu rmurs CHEST: normal shape and exp ansion LUNGS: clear to auscultatio n bilaterally ABDOMEN: soft, nontender, non distended, bowel sounds present, no organomegaly SKIN: anicteric EXTREMITIES: no clubbing, cyanosi s, or edema PSYCH: cognitive function i ntact ORAL CAVITY: mucosa moist
--- OUTSIDE RECORDS SUMMARY | 2024-11-09 15:34 | XMS_ITS | Patient Health Record ---
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 Name Role Phone SANJU HOROWITZ Primary Care Provider Norman Ashley Jr Allergies No Known Allergies Reason For Referral No Information Medications Medication SIG (Take, Route, Frequency, Duration) [...] Problem Status W/U Status Risk Notes Problem [id number] Esophageal reflu x (530.81) Active confirmed Problem Colon cancer screening (564226524) Colon cancer screening (Z12.11) Active confirmed Problem Preoperative examination (Z01.818) Active confirmed Vital Signs Temperature 97.3 degrees Fahrenheit 11/08/2024 Blood pressure diastolic 01 mm Hg 11/08/2024 Height 72.75 in 11/08/2024 Blood pressure systolic 001 mm Hg 11/08/2024 Weight 182.2 lbs 11/08/2024 BMI 24.2 kg/m2 11/08/2024 Encounters Encounter Location Date Provider Diagnosis [facility] [address] [place] [address] 11/08/2024 Norman Sykes Jr Colon cancer screening [...] scheduled at his convenience. Plan Of Treatment Pending Test Test Name Order Date CELIAC DISEASE ANTIBODY PANEL 05/12/2014 Future Test Test Name Order Date UPPER GI ENDOSCOPY 02/17/2014 COLONOSCOPY 11/08/2024 Next Appt Details Provider Name:Norman barry Jr, 11/26/2024 01:20:00 PM, [address] [place] [address] , [place], [place], [phone], Insurance Providers Payer Name Payer Address Payer Phone Subscriber Number Group Number Insured Name Patient Relationship to Insured Coverage Start Date Coverage End Date [facility] [address] [place] [phone] [id number] CAROLYN CASEY Self - patient is the insured Medical (General) History Medical History History ICD Code Cervical spine stenosis Celiac disease Surgical History Surgery Date(Month/Year) Left ACL tear and repair 06/13 right hand surgery right shoulder arthroscopy 2022 lower left leg, titanium jaspreet 1996 spinal fusion/ c 5-c6 disc replacement 2 025
[2024-12-01 14:32] VITALS: BMI 24.7
--- NOTE | 2024-12-02 10:04 | HO.ANESPROP2 ---
HPI - Anesthesia Eval Consult details Narrative: 44yo M for Colonoscopy PMFSH Active Problems Active Problems: All Active Problems Cervical stenosis of spine (Acute) Anxiety (Acute) Major depression (Acute) Acute effusion of right ear (Acute) Skin lesion (Acute) Screening for prostate cancer (Acute) Physical exam (Acute) Screening for colon cancer (Acute) Infected epidermoid cyst (Acute) Arm paresthesia, left (Acute) Cervical radiculopathy (Acute) Cervicalgia (Acute) Sinus pause (Acute) Sleep apnea (Acute) S/P reconstruction of anterior cruciate ligament (Acute) Preop cardiovascular exam (Acute) ACL (anterior cruciate ligament) rupture (Acute) Internal derangement of left knee (Acute) Nail discoloration (Acute) Chest pain (Acute) Past Medical History Medical History Celiac disease GERD (gastroesophageal reflux disease) Family History Family History Father Stroke Mother H/O heart artery stent Family history of problems with anesthesia: No Surgical History Surgical History History of repair of ACL Hx of hand surgery History of arthroscopy of right shoulder Hx of cervical spine surgery History of esophagogastroduodenoscopy (EGD) History of back surgery History of surgery on lower extremity History of Problems with Anesthesia: No Social History Social History Alcohol intake: unknown Patient Tobacco Use Status: Current everyday Tobacco user Tobacco use type: Smokeless Tobacco Cigarettes Per Day: 6 Years Smoked: 8 +/- e-Cigarette/Vaping Use: Currently Using Substance Use Type: Crack/Cocaine Have you been hit, kicked, punched, or otherwise hurt by someone within the past year? If so, by whom?: No Are you DNR?: No Advance Directives: No Advance Directives Information Provided: Yes Current occupational status: employed Current occupation: [id number] Cognitive needs: No Hearing needs: No Vision needs: No Meds Allergies Allergy/AdvReac Type Severity Reaction Status Date / Time No Known Allergies Allergy Verified 07/12/24 13:12 Exam Height,Weight and Vital Signs: Height 6 ft Weight 82.554 kg Assessment and Plan Assessment Anesthesia Assessment: Chart Reviewed Final Anesthetic Review Family History of Problems with Anesthesia: No History of Problems with Anesthesia: No
[2024-12-03 10:20] VITALS: BP 116/79; PULSE 82; RESP 20; TEMP 36.9; O2SAT 99
[2024-12-03] MEDS: Albuterol Sulfate (0.083%) 2.5 MG/3 ML VIAL.NEB INHALE (10:38)
[2024-12-03] MEDS: Lactated Ringers 1,000 ML 100 ML IVCONT (10:41)
--- NOTE | 2024-12-03 11:46 | HO.ANESPROP2 ---
[facility] Active Problems Active Problems: All Active Problems Cervical stenosis of spine (Acute) Anxiety (Acute) Major depression (Acute) Acute effusion of right ear (Acute) Skin lesion (Acute) Screening for prostate cancer (Acute) Physical exam (Acute) Screening for colon cancer (Acute) Infected epidermoid cyst (Acute) Arm paresthesia, left (Acute) Cervical radiculopathy (Acute) Cervicalgia (Acute) Sinus pause (Acute) Sleep apnea (Acute) S/P reconstruction of anterior cruciate ligament (Acute) Preop cardiovascular exam (Acute) ACL (anterior cruciate ligament) rupture (Acute) Internal derangement of left knee (Acute) Nail discoloration (Acute) Chest pain (Acute) Past Medical History Medical History Celiac disease GERD (gastroesophageal reflux disease) Functional capacity: independent ambulation Family History Family History Father Stroke Mother H/O heart artery stent Family history of problems with anesthesia: No Surgical History Surgical History History of repair of ACL Hx of hand surgery History of arthroscopy of right shoulder Hx of cervical spine surgery History of esophagogastroduodenoscopy (EGD) History of back surgery History of surgery on lower extremity History of Problems with Anesthesia: No Social History Social History Alcohol intake: unknown Patient Tobacco Use Status: Current everyday Tobacco user Tobacco use type: Smokeless Tobacco Cigarettes Per Day: 6 Years Smoked: 8 +/- e-Cigarette/Vaping Use: Currently Using Substance Use Type: Crack/Cocaine Have you been hit, kicked, punched, or otherwise hurt by someone within the past year? If so, by whom?: No Are you DNR?: No Advance Directives: No Advance Directives Information Provided: Yes Current occupational status: employed Current occupation: [employer] Cognitive needs: No Hearing needs: No Vision needs: No Meds Allergies Allergy/AdvReac Type Severity Reaction Status Date / Time No Known Allergies Allergy Verified 07/12/24 13:12 Active Medications: Current Medications Albuterol Sulfate (Albuterol Sulfate (0.083%) 2.5 Mg/3 Ml Vial.Neb) 2.5 mg INHALE ONCE PRN PRN Reason: Shortness of Breath/Wheezing Last Admin: 12/03/24 10:38 Dose: 2.5 mg Lactated Ringer's (Lr) 1,000 mls @ 100 mls/hr IVCONT .Q10H HENRIETTA Last Admin: 12/03/24 10:41 Dose: 100 mls/hr Exam Height,Weight and Vital Signs: Height 6 ft Weight 82.554 kg Last Vital Signs Temp 98.5 F 12/03/24 10:20 Pulse 82 12/03/24 10:20 Resp 20 12/03/24 10:20 BP 116/79 12/03/24 10:20 Pulse Ox 99 12/03/24 10:20 O2 Del Method Room Air 12/03/24 10:20 Airway Mallampati Class: III TM Dist: >3cm Neck ROM: Full Heart: RRR Lungs: CTA Assessment and Plan Assessment Anesthesia Assessment: Anesthesia Plan Discussed Final Anesthetic Review Family History of Problems with Anesthesia: No History of Problems with Anesthesia: No NPO: Yes ASA Class: II Final Preanesthetic Review: Meds/Allgs Chart Reviewed, Consent Obtained/Reviewed and Anes Risks/Benef Reviewed Patient Risk: Low Procedure Risk: Low Anesthetic Plan Anesthetic Plan: MAC: Disposition: Standard PACU
--- NOTE | 2024-12-03 12:03 | MHC.SHP ---
Pre-Procedural Eval Section A - 24 Hr Update-Section A only Date of Service: 12/03/24 The patient is an INPATIENT: No Changes since office visit: No Cold of Flu in the past 2 weeks, No New Medical Problems, No Changes in Medication and No Patient answered all questions The patient has been examined within 24 hours of the surgical procedure. The History & Physical has been completed within 30 days and I have reviewed it.: Yes Section B - Complete if H&P > 30 days Chief Complaint: screening Allergies: Allergies Allergy/AdvReac Type Severity Reaction Status Date / Time No Known Allergies Allergy Verified 07/12/24 13:12 Plan I have reviewed the history and physical and performed a pertinent physical examination on my patient. No changes have occurred unless specified. Time Spent With Patient Time: Total time managing care of this patient today ____ minutes.
--- NOTE | 2024-12-03 12:10 | PC.NURSE ---
anesthesia aware pt fighting cold no fever ls clear and diminished after resp tx congested cough no sob noted
[2024-12-03 12:50] VITALS: BP 96/59; PULSE 71; RESP 16; TEMP 36.1; O2SAT 95
--- NOTE | 2024-12-03 12:53 | PM.OP ---
Brief Operative Note Date of Service: 12/03/24 Pre-op diagnosis: screening Post-op diagnosis: same Procedure: colonoscopy Surgeon: Norman Sykes MD Anesthesia: MAC Was an Correctional Counselor/Case Manager used for this Procedure?: No Estimated blood loss (mL): 2 Pathology: other Condition: stable Disposition: PACU
[2024-12-03 13:06] VITALS: BP 102/64; PULSE 75; RESP 16; TEMP 36.1; O2SAT 96
--- NOTE | 2024-12-03 22:40 | OP_ITS ---
DATE OF SERVICE: 12/03/2024 SURGEON: Norman Sykes MD INDICATIONS: Colon cancer screening. PREOPERATIVE DIAGNOSIS: POSTOPERATIVE DIAGNOSIS: PROCEDURE PERFORMED: Colonoscopy to the terminal ilium with snare polypectomy and biopsy. ESTIMATED BLOOD LOSS: COMPLICATIONS: ANESTHESIA: Monitored anesthesia care. ASSISTANTS: SPECIMENS: DESCRIPTION OF PROCEDURE: A history and physical was performed. The risks and benefits of the procedure were explained to the patient, and informed consent was obtained. The patient was placed in the left lateral decubitus position. A digital rectal exam was performed and was found to be normal. The Olympus pediatric video colonoscope was introduced into the rectum and advanced to the cecum. The cecum was identified by transillumination, palpation, and identification of ileocecal valve. Examination was performed. The scope was removed. He tolerated the procedure well and was returned to the recovery area in stable condition. FINDINGS: The terminal ileum was examined and appeared normal. Visualized colonic mucosa was normal. There was a moderate amount of liquid stool present in the colon. This was washed and suctioned and with careful irrigation, the procedure was deemed adequate for examination. Two polyps were identified at about 15 cm. The first measured less than 5 mm and was removed with a cold snare. The second measured approximately 10 mm and was removed with a hot snare. No other polyps were identified. Retroflexed examination showed some internal hemorrhoids. IMPRESSION: Colon polyps. RECOMMENDATION: Follow up the biopsy results. MD DEANA Ramirez/THERESA / [id number]
== END 2024-12-03 13:34 | disposition home or self-care (01) ==
PROVIDERS: PCP Nurse Practitioner Family; Visit Provider Internal Medicine Gastroenterology
PROC: 0DJD8ZZ Inspection of Lower Intestinal Tract, Via Natural or Artificial Opening Endoscopic (ICD-10-PCS; CPT 45378; principal; 2024-12-03 12:00)
DX: Z12.11 Encounter for screening for malignant neoplasm of colon (principal); Z83.719 Family history of colon polyps, unspecified; D12.7 Benign neoplasm of rectosigmoid junction; K64.8 Other hemorrhoids; K90.0 Celiac disease; Z79.899 Other long term (current) drug therapy; Z98.890 Other specified postprocedural states; F17.220 Nicotine dependence, chewing tobacco, uncomplicated
CPT/HCPCS: 45385; 88305; J2003; J2704

== ENCOUNTER 2025-01-30 02:28 | Emergency (ER) | payer OTHER, SELFPAY ==
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
[2025-01-30 02:33] VITALS: BP 116/68; PULSE 79; RESP 16; TEMP 36.9; O2SAT 97; BMI 25.2
[2025-01-30 03:08] LABS: Hematocrit 40.3 % (42.0-52.0); Hemoglobin 14.3 g/dl (14.0-18.0); Imm Gran Abs Auto 0.03 X10*3/uL (0.00-0.03); Imm Gran Pct Auto 0.3 % (0.0-0.4); Lymphocytes Absolute Auto 1.9 X10*3/uL (1.2-4.9); MANUAL DIFF FLAG NO; Mean Corpuscular HGB Conc 35.5 g/dl (31.0-36.0); Mean Corpuscular Hemoglobin 31.0 pg (27.0-33.0); Mean Corpuscular Volume 87.4 fL (80.0-98.0); NRBC Abs Auto 0.000 X10*3/uL (0.0-0.012); NRBC Pct Auto 0.0 /100WBC (0.0-0.2); Platelet Count 269 X10*3/uL (160-400); Red Blood Count 4.61 X10*6/uL (4.60-5.80); White Blood Count 8.9 X10*3/uL (4.8-10.8)
[2025-01-30 03:32] LABS: Albumin Level 4.6 g/dL (3.5-5.0); Alkaline Phosphatase 60 U/L (39-117); Anion Gap 16 (12-20); Aspartate Amino Transferase 39 U/L (5-37); Blood Urea Nitrogen 14 mg/dL (9-16); Calcium 8.8 mg/dL (8.4-10.2); Carbon Dioxide 26 mmol/L (22-29); Chloride 109 mmol/L (96-108); Creatinine Clr Calc Pharmacy 115.1; Estimated Glomerular Filt Rate > 60; Potassium 4.5 mmol/L (3.3-5.1); Sodium 146 mmol/L (135-145); Total Protein 7.0 g/dL (6.5-8.0)
[2025-01-30 03:47] LABS: Alanine Aminotransferase 42 U/L (0-40)
[2025-01-30 04:17] VITALS: BP 120/74; PULSE 81; TEMP 36.8; O2SAT 97
[2025-01-30 04:39] LABS: Cannabinoid Screen Urine POSITIVE (Not Detect)
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
--- OUTSIDE RECORDS SUMMARY | 2025-01-30 04:58 | XMS_ITS | Patient Health Record ---
Author Organization [facility] Address [address] [place] [address] Care Team Providers Care Principal Cyber Engineer Name Role Phone SANJU HOROWITZ Primary Care Provider Norman Ashley Jr Allergies No Known Allergies Results Component Value Reference Range Notes Pathology Reviewed date:12/10/2024 03:49:30 PM Interpretation: Performing Lab:[facility], [address] [place] [id number] Notes/Report: Reason For Referral No Information Medications Medication [...] Problem Status W/U Status Risk Notes Problem 501513911 Esophageal reflux (530.81) Active confirmed Problem Colon cancer screening (798799172) Colon cancer screening (Z12.11) Active confirmed Problem Pre-procedure evaluation check (463259686) Preoperative examination (Z01.818) Active confirmed Vital Signs Temperature 97.3 degrees Fahrenheit 11/08/2024 Blood pressure diastolic 01 mm Hg 11/08/2024 Height 72.75 in 11/08/2024 Blood pressure systolic 001 mm Hg 11/08/2024 Weight 182.2 lbs 11/08/2024 BMI 24.2 kg/m2 11/08/2024 Encounters Encounter Location Date Provider Diagnosis [facility] [address]patient [address], [place] [id number] 12/03/2024 Norman Sykes Jr Colon cancer screening Z12.11 [address] Colon polyps K63.5 [facility] [address] [place] [phone] 11/08/2024 Norman Sykes Jr Colon cancer screening Z12.11 and Preoperative examination Z01.818 [facility] [address] [place] [phone] 11/24/[address] [facility] [address] [place] [phone] 12/02/[address] [facility] [address] [place] [phone] 12/10/2024 Norman Sykes Jr Assessments Encounter Date Diagnosis (ICD Code) Assessment Notes Treatment Notes Treatment Clinical Notes Section Notes 12/03/2024 Colon cancer screening (ICD-10 - Z12.11) 12/03/2024 Colon polyps (ICD-10 - K63.5) 11/08/2024 Colon cancer screening (ICD-10 - Z12.11) [...] Date UPPER GI ENDOSCOPY 02/17/2014 COLONOSCOPY 11/08/2024 Insurance Providers Payer Name Payer Address Payer Phone Subscriber Number Group Number Insured Name Patient Relationship to Insured Coverage Start Date Coverage End Date [facility] [address] [place] [address] [id number] CAROLYN CASEY Self - patient is the insured Medical (General) History Medical History History ICD Code Cervical spine stenosis Celiac disease Surgical History Surgery Date(Month/Year) Left ACL tear and repair 06/13 right hand surgery right shoulder arthroscopy 2022 lower left leg, titanium jaspreet 1996 spinal fusion/ c 5-c6 disc replacement 2
[2025-01-30 05:01] VITALS: BP 128/80; PULSE 78; RESP 17; TEMP 37.1; O2SAT 97
[2025-01-30 05:10] VITALS: BP 128/80; PULSE 78; RESP 17; TEMP 37.1; O2SAT 97
== END 2025-01-30 05:12 | disposition home or self-care (01) ==
PROVIDERS: Emergency Provider Emergency Medicine
DX: S43.101A Unspecified dislocation of right acromioclavicular joint, initial encounter (principal); S60.512A Abrasion of left hand, initial encounter; S60.511A Abrasion of right hand, initial encounter; M25.511 Pain in right shoulder; F17.210 Nicotine dependence, cigarettes, uncomplicated; F10.129 Alcohol abuse with intoxication, unspecified; Y90.7 Blood alcohol level of 200-239 mg/100 ml; R51.9 Headache, unspecified; M54.2 Cervicalgia; V28.49XA Other motorcycle driver injured in noncollision transport accident in traffic accident, initial encounter; Y93.9 Activity, unspecified; Y92.410 Unspecified street and highway as the place of occurrence of the external cause; Y99.8 Other external cause status; Z51.81 Encounter for therapeutic drug level monitoring; Z79.899 Other long term (current) drug therapy
CPT/HCPCS: 36415; 70450; 72125; 73030; 80053; 80307; 85025; 99283; 99284

== ENCOUNTER → 2025-01-30 02:39 | Outpatient (BNV) | payer OTHER, SELFPAY | PROVIDERS: Emergency Provider Emergency Medicine; Visit Provider Student in an Organized Health Care Education/Training Program | DX: M54.2 Cervicalgia (principal); R51.9 Headache, unspecified; S43.121A Dislocation of right acromioclavicular joint, 100%-200% displacement, initial encounter | CPT/HCPCS: 70450; 72125; 73030 ==